=== PATIENT | female | born 1945 | race Caucasian/White ===

== ENCOUNTER → 2017-07-23 | Outpatient (CLI) | payer MEDICARE | LOC: YCFC.O 08:06 | DX: R03.0 Elevated blood-pressure reading, without diagnosis of hypertension (principal); E78.00 Pure hypercholesterolemia, unspecified ==

== ENCOUNTER → 2017-09-09 | Outpatient (CLI) | payer MEDICARE | LOC: YCFC.O 12:00 | PROVIDERS: ATTEND Nurse Practitioner Family | DX: R60.0 Localized edema (principal); R06.02 Shortness of breath; R53.83 Other fatigue; D64.9 Anemia, unspecified ==

== ENCOUNTER → 2017-09-30 | Outpatient (CLI) | payer MEDICARE ==
--- NOTE | 2017-09-30 14:06 | RAD ---
EXAM DESCRIPTION: Chest,2 Views CLINICAL HISTORY: ABNORMAL HEART BEAT COMPARISON: None TECHNIQUE: PA/lateral FINDINGS: There is no acute appearing cardiac or pulmonary abnormality. Heart size is large with prominent central pulmonary arteries. No pleural effusion or pneumothorax. Discoid atelectasis is seen in the left lung base. Otherwise the lungs are clear with no consolidating infiltrate. Lateral view shows intact sternum and T-spine. IMPRESSION: Large heart without congestive failure. Discoid atelectasis in left lung base. Electronically signed by: Tone Boggs MD 09/30/2017 2:04 PM CDT
== END ==
LOC: YCFC.O 12:17
PROVIDERS: ATTEND Nurse Practitioner Family
DX: R00.9 Unspecified abnormalities of heart beat (principal); J98.11 Atelectasis

== ENCOUNTER → 2017-10-23 | Outpatient (CLI) | payer MEDICARE ==
--- NOTE | 2017-10-24 08:14 | MRI ---
EXAM DESCRIPTION: Lumbar Spine w/o Contrast CLINICAL HISTORY: LOW BACK PAIN COMPARISON: X-ray October 17, 2017 TECHNIQUE: Multiplanar, multisequence MRI of the lumbar spine was performed without contrast. FINDINGS: Lumbar vertebral body heights are maintained. The designated L5-S1 disc space is seen on axial image 3 of transaxial T2 series 501. Mild curvature of the upper lumbar spine with convexity towards the right is seen. Conus medullaris terminates at L2 which is low-lying. Visualized intra-abdominal and retroperitoneal structures are unremarkable. L1-2 No significant findings. L2-3 Disc desiccation without significant disc space narrowing. Mild facet hypertrophic and degenerative changes are seen with ligamentum flavum thickening asymmetric on the left. There is mild spinal canal stenosis and mild bilateral foraminal encroachment without nerve root impingement. L3-4 Disc desiccation without significant disc space narrowing. Central disc bulge or protrusion extends 4 to 5 mm AP beyond the endplate margin and measuring 11 mm transverse minimally extending posterior to the L3 inferior endplate and L4 superior endplate. This indents the ventral aspect of the thecal sac. Moderate facet hypertrophic and degenerative changes with moderate ligamentum flavum thickening is seen. There is loss of CSF signal from around the nerve roots in the thecal sac measuring 5 mm AP by 8 mm transverse consistent with severe spinal canal stenosis. There is left greater than right lateral recess encroachment. Moderate right and mild left foraminal encroachment is seen with facet hypertrophy and disc bulging contacting the exiting right L3 nerve root. Small annular tear and right neural foramen is seen. Mild Modic type I degenerative endplate signal changes posteriorly on the right are noted. L4-5 Disc desiccation without disc space narrowing. Moderate facet hypertrophic and degenerative changes with mild ligamentum flavum thickening is seen. There is mild spinal canal stenosis and lateral recess encroachment with minimal bilateral foraminal encroachment. L5-S1 Disc desiccation and mild loss of disc space height with vacuum disc is seen. Mild bilateral facet hypertrophic and degenerative changes with ligamentum flavum thickening is seen. There is mild left lateral recess encroachment on the descending S1 nerve root. Moderate right greater than left foraminal encroachment is seen. IMPRESSION: [id number] disc degenerative changes and facet arthropathy of the lumbar spine is seen. There is multifactorial severe spinal canal stenosis at L3-4. Multilevel foraminal encroachment is seen most significant on the right at L3-4 and right greater than left at L5-S1. Electronically signed by: Nelson Luna MD 10/24/2017 8:13 AM CDT
== END ==
LOC: MRI 14:00
PROVIDERS: ATTEND Nurse Practitioner Family
DX: M54.5 Low back pain (principal); M48.061 Spinal stenosis, lumbar region without neurogenic claudication

== ENCOUNTER 2018-04-03 11:47 | Inpatient (IN) | payer MEDICARE ==
[2018-04-03] MEDS ORDERED: methylPREDNISolone SODIUM SUC 125 MG/2 ML VIAL IV ONE ×2 (12:15→18:11)
--- NOTE | 2018-04-03 12:19 | ED.PDOC ---
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 Timing/Duration: yesterday Cough Quality/Degree: dry cough Possible Cause: chronic episodes, unknown cause Improving Factors: nothing Worsening Factors: nothing Associated Symptoms: other - see hpi Allergies/Adverse Reactions: Allergies Penicillins Allergy (Verified 04/03/18 13:50) NSAIDs Adverse Reaction (Verified 04/03/18 13:50) Home Medications: Ambulatory Orders Buspirone HCl 5 - 10 mg PO PRN PRN 10/17/17 Hydrochlorothiazide 12.5 mg PO PRN PRN 10/17/17 Nebivolol HCl [Bystolic] 10 mg PO DAILY 10/17/17 Rivaroxaban [Xarelto] 20 mg PO DAILY 10/17/17 Tizanidine HCl 4 mg PO PRN PRN 10/17/17 Tramadol HCl [Ultram] 50 mg PO PRN PRN 10/17/17 Trazodone HCl [Trazodone Hydrochloride] 100 mg PO BEDTIME 10/17/17 Lisinopril 10 mg PO DAILY 04/03/18 Mometasone Furoate-Formoterol [Dulera 100-5 Mcg/Act] 1 aer IN DAILY 04/03/18 Review of Systems - Review of Systems Constitutional: States: no symptoms reported EENTM: States: no symptoms reported Respiratory: States: see HPI Cardiology: States: no symptoms reported Gastrointestinal/Abdominal: States: no symptoms reported Genitourinary: States: no symptoms reported Musculoskeletal: States: back pain - chronic Skin: States: no symptoms reported Neurological: States: no symptoms reported All other Systems: Reviewed and Negative Past Medical History (General) - Patient Medical History Hx of COPD: Yes Hx Cardiac Disorders: Yes - A-fib Hx Hypertension: Yes Surgical History: appendectomy, cholecystectomy, other - knee,cataract,colon resection-diverticulitis - Vaccination History Hx Tetanus, Diphtheria Vaccination: Yes Hx Influenza Vaccination: No Hx Pneumococcal Vaccination: Yes - Social History Hx Tobacco Use: No Hx Alcohol Use: Yes Family Medical History - Family History Mother Family History: Unknown Hx Cardiac Disease: Yes - sister Hx Family Cancer: Yes - dad-kidney cancer Physical Exam - Physical Exam General Appearance: Alert, Comfortable, No apparent distress Eye Exam: bilateral normal ENT Exam: normal ENT inspection, hearing grossly normal, pharynx normal Neck: non-tender, full range of motion, supple, normal inspection, trachea midline Respiratory: chest non-tender, no respiratory distress, decreased breath sounds, wheezing Cardiovascular/Chest: normal peripheral pulses, no gallop, no murmur, irregularly irregular - HR-90 Gastrointestinal/Abdominal: non tender, soft, no organomegaly Extremity: no pedal edema, no calf tenderness Neurologic: alert, oriented x 3 Skin Exam: normal color, warm/dry Progress - Progress Progress: 04/03/18 13:46 Vital Signs - 8 hr 04/03/18 04/03/18 11:47 12:51 Temperature 102.1 F H Pulse Rate 90 Pulse Rate [ 101 H Left Radial] Respiratory 18 20 Rate Blood Pressure 102/77 [Left Arm] O2 Sat by Pulse 93 L 99 Oximetry - Results/Orders Results/Orders: 04/03/18 12:15 URINALYSIS Stat 04/03/18 12:22 SVN/Updraft Therapy .ONCE SVN/Updraft Therapy .PRN 04/03/18 13:22 levoFLOXacin 500MG IV [Levaquin 500MG IV] 500 mg Premix Bag 1 bag IVPB ONCE 04/04/18 09:00 [facility] Daily Laboratory Results - last 24 hr 04/03/18 12:39 WBC 11.1 H RBC 5.09 Hgb 16.3 H Hct 48.6 H MCV 95.4 MCH 32.0 H MCHC 33.6 RDW 14.2 Plt Count 199 MPV 8.4 Absolute Neuts (auto) 10.10 H Absolute Lymphs (auto) 0.40 L Absolute Monos (auto) 0.40 Absolute Eos (auto) 0.00 Absolute Basos (auto) 0.00 Neutrophils % 91.5 H Lymphocytes % 3.7 L Monocytes % 4.0 Eosinophils % 0.4 L Basophils % 0.4 PT 11.2 H INR 1.12 PTT (SP) 27.1 Sodium 137 Potassium 4.1 Chloride 100 L Carbon Dioxide 29 Anion Gap 12.1 BUN 13 Creatinine 0.91 BUN/Creatinine Ratio 14.3 Random Glucose 107 H Serum Osmolality 274.4 L Calcium 9.1 Magnesium 1.6 L Total Bilirubin 1.0 Direct Bilirubin 0.2 Indirect Bilirubin 0.8 AST 24 ALT 26 Alkaline Phosphatase 54 Creatine Kinase 47 CK-MB (CK-2) 1.3 CK-MB (CK-2) % Not Reportable Troponin I < 0.02 B-Natriuretic Peptide 170.0 H Serum Total Protein 6.2 L Albumin 3.8 Flu A positive-;Also patient desaturates 93 % despite 2l/nc ;has history of afib which also makes her condition worse; discuss test result with patient recommending hospital OBS agreed with plan Departure - Departure Clinical Impression: Influenza A with respiratory manifestations, History of atrial fibrillation Time of Disposition: 13:51 Disposition: Admit Patient Condition: Fair Departure Forms: Patient Portal Self Enrollment Referrals: Gabrielle Mohan, LEAD RECOVERER [Primary Care Provider] - 1-2 Weeks Home Medications: Ambulatory Orders Buspirone HCl 5 - 10 mg PO PRN PRN 10/17/17 Hydrochlorothiazide 12.5 mg PO PRN PRN 10/17/17 Nebivolol HCl [Bystolic] 10 mg PO DAILY 10/17/17 Rivaroxaban [Xarelto] 20 mg PO DAILY 10/17/17 Tizanidine HCl 4 mg PO PRN PRN 10/17/17 Tramadol HCl [Ultram] 50 mg PO PRN PRN 10/17/17 Trazodone HCl [Trazodone Hydrochloride] 100 mg PO BEDTIME 10/17/17 Lisinopril 10 mg PO DAILY 04/03/18 Mometasone Furoate-Formoterol [Dulera 100-5 Mcg/Act] 1 aer IN DAILY 04/03/18 Decision To Admit - Decistion To Admit Decision to Admit Reason: Admit from ER Decision to Admit Date: 04/03/18 - D/W Sherry Allen-MAN/Hospitalist for admit Decision to Admit Time: 13:51
[2018-04-03] MEDS ORDERED: IPRATROPIUM/ALBUTEROL 3 ML VIAL NEB ONE (12:22)
--- NOTE | 2018-04-03 12:34 | RAD ---
EXAM DESCRIPTION: Chest,1 View CLINICAL HISTORY: 72 years Female, cough/hx of copd COMPARISON: Previous study September 30, 2017 TECHNIQUE: AP portable chest. FINDINGS: Heart size is large with centrally prominent pulmonary vascularity. Heart appears larger than on previous study. Correlate with echocardiographic findings. Partial volume loss or minimal infiltrate in the medial right lung base. No pulmonary mass or worrisome nodule. No pneumothorax or pleural effusion. Bones are unremarkable. IMPRESSION: Large heart without congestive failure. Minimal infiltrate or partial volume loss in the medial right lung base. Electronically signed by: Tone Boggs MD 04/03/2018 12:32 PM [facility]
[2018-04-03] MEDS ORDERED: levoFLOXacin 500MG IV 500 MG in PREMIX BAG 1 BAG IVPB ONE (13:22)
[2018-04-03] MEDS ORDERED: OSELTAMIVIR 75 MG CAP PO ONE (13:29)
[2018-04-03] MEDS ORDERED: levoFLOXacin 500MG IV 100 ML IVPB ONE (13:42)
[2018-04-03] MEDS ORDERED: ACETAMINOPHEN 325 MG TAB PO ONE (13:52)
--- NOTE | 2018-04-03 14:07 | HP ---
SUPERVISING PHYSICIAN: Herb Estes MD CHIEF COMPLAINT: Chills and shortness of breath. HISTORY OF PRESENT ILLNESS: This is a 72 year-old female patient who has been feeling poorly for several days. She has a history of chronic obstructive pulmonary disease as well as atrial fibrillation. Today, her chest has been so bad that she came to the Emergency Room. In the Emergency Room her temperature was 102.1 with a heart rate in the low 100s. Her blood pressure was 102/77, respiratory rate 20, 02 saturation was 93% on 2 liters nasal cannula. When her oxygen was discontinued, she dropped to the mid 80s. Lab was done and she was positive for influenza A. Her WBCs were 11,100 with a hemoglobin of 16.3 and hematocrit of 48.6. She had a left shift on her differential. Sodium 137, potassium 4.1, chloride 100, carbon dioxide 29, BUN13, creatinine 0.91, magnesium 1.6. BNP 170. Urinalysis was within normal limits. Chest x-ray with minimal infiltrate or partial volume loss to the medial right lung base. She was given some fluids, magnesium replacement as well as Tamiflu. Multiple breathing treatments were administered and I was called for admission to the hospital. PAST MEDICAL HISTORY: 1. Atrial fibrillation. 2. Chronic obstructive pulmonary disease. 3. Hypertension. 4. Diverticulitis. PAST SURGICAL HISTORY: 1. Appendectomy. 2. Cholecystectomy. 3. Right TKA. 4. Cataract surgery. 5. Colon resection. CURRENT MEDICATIONS: Per the EMR and awaiting verification. ALLERGIES: NSAIDS and Penicillins. SOCIAL HISTORY: She lives alone, she lives in [place]. She denies any tobacco or illicit drug use. She does drink 3 to 4 glasses of wine weekly. REVIEW OF SYSTEMS: GENERAL: Positive for fever, fatigue, negative for weight changes. HEENT: Negative for sinus symptoms, ear pain, vision changes or sore throat. RESPIRATORY: As per history of present illness including coughing, wheezing, shortness of breath. CARDIAC: Negative for chest pain, palpitations, tachycardia. GI: Negative for nausea, vomiting or diarrhea. GENITOURINARY: Negative for hematuria, dysuria, polyuria. MUSCULOSKELETAL: Chronic for chronic back pain, myalgias, negative for arthralgias. SKIN: Negative for lesions or rashes. NEURO: Negative for headaches, dizziness or seizures. PHYSICAL EXAMINATION: VITAL SIGNS: Temperature 98.2, heart rate 116, respiratory rate 24, 02 saturation 94%. GENERAL: This is a 72 year-old female patient sitting on the side of her hospital bed. She is in moderate respiratory distress. HEENT: Normocephalic and atraumatic. Pupils are equal and reactive. Oropharynx is clear. NECK: Supple without mass. CHEST: Expiratory wheezes throughout, diminished at the bases. She is tachypneic. She is speaking 2 to 3 phrases due to her dyspnea. Chest has equal rise and fall with inspiration and expiration. CARDIOVASCULAR: Regular rate and rhythm. ABDOMEN: Soft, nondistended, non-tender. Bowel sounds are positive. EXTREMITIES: No cyanosis, clubbing, or edema. NEUROLOGIC: She is awake, alert, and oriented x3. LABS AND FILMS: As per history of present illness. ASSESSMENT: 1. Sepsis related to right lower lobe pneumonia with admitting temperature of 102.1 and heart rate of 115. 2. Influenza A. 3. Dehydration secondary to #1 and #2. 4. Chronic obstructive pulmonary disease with an exacerbation. 5. History of atrial fibrillation presently on Xarelto, a beta romain and bruce inhibitor. 6. Hypertension. PLAN: We will admit the patient to the hospital. I have initiated the pneumonia guidelines including the nebulizer breathing treatments plus aggressive pulmonary hygiene. I have started her on Rocephin and azithromycin. She received an initial dose of IV steroids and I will start a taper on steroids later tonight. She will be on the rn cardiac cath due to her atrial fibrillation. I have restarted her home medications. I have also given her Mucinex and she may benefit from pulmonary rehabilitation on discharge. She did not pass her sleep study, she would also benefit from that new test. Estimate stay 2 to 3 days. Will continue to monitor her closely and follow as needed. #[id number] [facility]
[2018-04-03] MEDS ORDERED: ALBUTEROL SULFATE 2.5 MG/3 ML VIAL NEB PRN (16:22)
[2018-04-03] MEDS ORDERED: ONDANSETRON INJ 4 MG/2 ML VIAL IV PRN (16:22)
[2018-04-03] MEDS ORDERED: SODIUM CHLORIDE 0.9% (FLUSH) 10 ML SYG IV PRN (16:22)
[2018-04-03] MEDS ORDERED: tiZANidine 4 MG TAB PO PRN (16:32)
[2018-04-03] MEDS ORDERED: traMADol HCL 50 MG TAB PO PRN (16:32)
[2018-04-03] MEDS ORDERED: busPIRone HCL 5 MG TAB PO PRN (16:32)
[2018-04-03] MEDS ORDERED: SODIUM CHL 0.9% 50ML MIN-BAG+ 50 ML IVPB ONE (18:10)
[2018-04-03] MEDS ORDERED: cefTRIAXone SODIUM 1 GM VIAL ONE (18:10)
[2018-04-03] MEDS: SODIUM CHLORIDE 0.45% 1000ML 1,000 ML IVS PRN (18:15)
[2018-04-03] MEDS: IV SET AND CAP CHANGE INJ INJ SCH (18:16)
[2018-04-03] MEDS: cefTRIAXone SODIUM 1 GM in SODIUM CHL 0.9% 50ML MIN-BAG+ 50 ML IVPB SCH (18:16)
[2018-04-03] MEDS ORDERED: AZITHROMYCIN IV 500 MG VIAL IVPB ONE (19:02)
[2018-04-03] MEDS ORDERED: SODIUM CHLORIDE 0.9% 250ML 250 ML ONE (19:02)
[2018-04-03] MEDS: AZITHROMYCIN IV 500 MG in SODIUM CHLORIDE 0.9% 250ML 250 ML IVPB SCH (19:09)
[2018-04-03] MEDS ORDERED: PANTOPRAZOLE SODIUM IV 40 MG VIAL ONE (20:23)
[2018-04-03] MEDS: IPRATROPIUM/ALBUTEROL 3 ML VIAL INH SCH (20:45)
[2018-04-03] MEDS: guaiFENesin ER TAB 600 MG TAB PO SCH (21:00)
[2018-04-03] MEDS: traZODone HCL 100 MG TAB PO SCH (21:00)
[2018-04-03] MEDS: SODIUM CHLORIDE 0.9% (FLUSH) 10 ML SYG IV SCH (21:02)
[2018-04-03] MEDS: methylPREDNISolone SODIUM SUC 125 MG/2 ML VIAL IV SCH (23:40)
[2018-04-04] MEDS: SODIUM CHLORIDE 0.45% 1000ML 1,000 ML IVS PRN ×3 (00:49→16:46)
[2018-04-04] MEDS: methylPREDNISolone SODIUM SUC 125 MG/2 ML VIAL IV SCH ×4 (05:53→23:31)
[2018-04-04] MEDS: PANTOPRAZOLE SODIUM IV 40 MG VIAL IV SCH (06:12)
[2018-04-04] MEDS ORDERED: OSELTAMIVIR 75 MG CAP ONE (07:45)
[2018-04-04] MEDS ORDERED: guaiFENesin 100 MG/5 ML 10 ML UD ONE (07:46)
[2018-04-04] MEDS: IPRATROPIUM/ALBUTEROL 3 ML VIAL INH SCH ×2 (07:58→12:26)
--- NOTE | 2018-04-04 08:37 | RAD ---
EXAM DESCRIPTION: Chest,2 Views CLINICAL HISTORY: Pneumonia COMPARISON: 04/03/2018 FINDINGS: Two views of the chest are submitted. There is improved aeration at the lung bases. There is mild central pulmonary vascular engorgement. Cardiac silhouette appears normal. No focal parenchymal or pleural disease. No acute bony abnormality. There is no significant pulmonary vascular engorgement. IMPRESSION: Improving aeration and decreased pulmonary vascular engorgement. Electronically signed by: Dayton Jauregui 04/04/2018 8:35 AM [facility]
[2018-04-04] MEDS: NEBIVOLOL 2.5 MG TAB PO SCH (08:38)
[2018-04-04] MEDS: guaiFENesin ER TAB 600 MG TAB PO SCH ×2 (08:39→21:10)
[2018-04-04] MEDS: OSELTAMIVIR 75 MG CAP PO SCH ×2 (08:39→21:11)
[2018-04-04] MEDS: LISINOPRIL 10 MG TAB PO SCH (08:40)
[2018-04-04] MEDS: SODIUM CHLORIDE 0.9% (FLUSH) 10 ML SYG IV SCH ×2 (10:01→21:11)
[2018-04-04] MEDS: RIVAROXABAN 10 MG TAB PO SCH (11:34)
[2018-04-04] MEDS ORDERED: SODIUM CHL 0.9% 50ML MIN-BAG+ 50 ML IVPB ONE (15:46)
[2018-04-04] MEDS ORDERED: cefTRIAXone SODIUM 1 GM VIAL ONE (15:47)
[2018-04-04] MEDS: cefTRIAXone SODIUM 1 GM in SODIUM CHL 0.9% 50ML MIN-BAG+ 50 ML IVPB SCH (15:55)
[2018-04-04] MEDS ORDERED: SODIUM CHLORIDE 0.9% 250ML 250 ML ONE (18:10)
[2018-04-04] MEDS ORDERED: AZITHROMYCIN IV 500 MG VIAL IVPB ONE (18:11)
[2018-04-04] MEDS: AZITHROMYCIN IV 500 MG in SODIUM CHLORIDE 0.9% 250ML 250 ML IVPB SCH (18:26)
[2018-04-04] MEDS: LEVALBUTEROL NEBS 1.25 MG/3 ML VIAL NEB SCH (18:47)
[2018-04-04] MEDS: BUDESONIDE NEBS 0.5 MG/2 ML VIAL NEB SCH (20:44)
[2018-04-04] MEDS: traZODone HCL 100 MG TAB PO SCH (21:10)
--- NOTE | 2018-04-04 21:36 | PN ---
DATE: 04/04/18 SUPERVISING PHYSICIAN: Roland Islas M.D. SUBJECTIVE: The patient feels a little bit better today, she says, but she continues to be awfully short of breath even at rest. She has been afebrile since admission with T max temperature since admission with T max temperature since admission at 98.3. She has had some increase in heart rate with a history of atrial fibrillation which shows to be atrial fibrillation on the monitor, but denies any palpitations, chest pains or worsening shortness of breath. OBJECTIVE: VITAL SIGNS: Temperature 98.3, pulse 114, blood pressure 130/82, respirations 18, satting 97% on nasal cannula at 2 liters at rest. I's and O's show a positive balance of 980 with 1780 in, 800 out. Weight is 107.1 kg. CHEST: Lung sounds continue to be diminished throughout with expiratory wheezing. No rales or rhonchi. HEART: Regular rate and rhythm with the monitor showing anywhere from low 90s up to 115 or 120. ABDOMEN: Soft, non-tender. Positive bowel sounds. EXTREMITIES: Without any clubbing, cyanosis or edema. NEUROLOGIC: She is alert and oriented times three. LABORATORY: White count 6,800, hemoglobin 15.3, hematocrit 46.6, platelet count 192,000. Differential does show a left shift. Chemistry shows normal electrolytes with potassium 4.3, BUN 14, creatinine 0.83, calcium 8.8, bilirubin and other liver functions showing to be within normal limits. Urinalysis was showing to be within normal limits. MICROBIOLOGY: Blood cultures remain negative at 24 hours. RADIOLOGY: Repeat chest x-ray shows improving aeration, decrease pulmonary vascular engorgement on 2 view chest film ASSESSMENT: 1. Sepsis secondary to right lower lobe pneumonia. 2. Acute exacerbation of chronic obstructive pulmonary disease secondary to Influenza A with concerns for developing community acquired right lower lobe pneumonia. 3. Chronic atrial fibrillation on Xarelto and low dose beta romain for rate control with continued rate control requiring continued close monitoring. 4. Hypertension. PLAN: Will continue with treatment of the patient with antivirals of Tamiflu and antibiotics of azithromycin and Rocephin. Given that she is continuing to be very tight and having obvious wheezing, will continue with IV steroids and continue to slowly taper those off as she tolerates. Will continue to monitor her cardiac cueva in regards to atrial fibrillation. Should she show some increase in heart rate, certainly will need to consider utilizing additional beta blockers or possible Cardizem for rate control. 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 Mcmanus and certainly if she is still here Friday it would be good to try to get a consultation in regards to that if required. I will anticipate at least another 1 to 2 days of hospitalization as the patient is showing slow clinical improvement. Once she can transition to outpatient management will continue to monitor and treat appropriately. #[id number] [facility]
[2018-04-05] MEDS: LEVALBUTEROL NEBS 1.25 MG/3 ML VIAL NEB SCH ×3 (00:55→16:33)
[2018-04-05] MEDS: SODIUM CHLORIDE 0.45% 1000ML 1,000 ML IVS PRN (05:16)
[2018-04-05] MEDS: methylPREDNISolone SODIUM SUC 125 MG/2 ML VIAL IV SCH ×3 (05:34→18:18)
[2018-04-05] MEDS: PANTOPRAZOLE SODIUM IV 40 MG VIAL IV SCH (06:15)
[2018-04-05] MEDS ORDERED: BUDESONIDE NEBS 0.5 MG/2 ML VIAL NEB ONE (07:49)
[2018-04-05] MEDS ORDERED: LEVALBUTEROL NEBS 1.25 MG/3 ML VIAL NEB ONE (07:49)
[2018-04-05] MEDS: BUDESONIDE NEBS 0.5 MG/2 ML VIAL NEB SCH ×2 (08:31→20:49)
[2018-04-05] MEDS ORDERED: ALPRAZolam 0.5 MG TAB PO PRN (09:20)
--- NOTE | 2018-04-05 09:31 | RAD ---
EXAM DESCRIPTION: Chest,2 Views CLINICAL HISTORY: 72 years Female RLL pneumonia COMPARISON: Two-view chest dated 04/04/2018 TECHNIQUE: PA and lateral views of the chest are obtained. FINDINGS: Heart: The heart is upper limits of normal in size and configuration. Vasculature: There is mild tortuosity and atherosclerosis of the aorta. The pulmonary vascularity is normal. Mediastinum: Unremarkable otherwise. No evidence of mass or adenopathy. Lungs: There is no focal consolidation in the lungs. A 0.9 cm opacity projects along the right upper lung laterally and appears isodense to adjacent ribs, possibly a calcified granuloma. It was present on a more remote study dated 09/30/2017. There is minimal discoid atelectasis or scarring in the left base. Pleural spaces: There are no pleural effusions. There are no pneumothoraces. Osseous structures: There is no evidence of acute fracture, osseous destruction or osteoblastic lesions. There are diffuse enthesopathic changes including a rolling pattern of ossification in the thoracic spine consistent with diffuse idiopathic skeletal hyperostosis (DISH). Tubes and catheters: None. Upper abdomen: No acute findings. IMPRESSION: No acute cardiopulmonary abnormality. Suspect calcified granuloma in the right upper lung laterally, stable since 09/30/2017. Comparison to more remote previous chest x-rays may be helpful for confirmation. Remainder of findings as described above. Electronically signed by: Amarilys Oliver MD 04/05/2018 9:29 AM HOUSEHOLD APPLIANCES SERVICE TECHNICIAN
[2018-04-05] MEDS ORDERED: diltiaZEM DRIP 125 MG in SODIUM CHLORIDE 0.9% 100ML 100 ML IVPB SCH (10:00)
[2018-04-05] MEDS ORDERED: SODIUM CHLORIDE 0.9% 100ML 100 ML IVPB ONE (10:14)
[2018-04-05] MEDS ORDERED: diltiaZEM DRIP 125 MG/25 ML VIAL IVPB ONE (10:15)
[2018-04-05] MEDS: guaiFENesin ER TAB 600 MG TAB PO SCH ×2 (11:08→20:32)
[2018-04-05] MEDS: SODIUM CHLORIDE 0.9% (FLUSH) 10 ML SYG IV SCH ×2 (11:09→20:33)
[2018-04-05] MEDS: NEBIVOLOL 2.5 MG TAB PO SCH (11:14)
[2018-04-05] MEDS: OSELTAMIVIR 75 MG CAP PO SCH ×2 (11:15→21:46)
[2018-04-05] MEDS: LISINOPRIL 10 MG TAB PO SCH (11:17)
[2018-04-05] MEDS: RIVAROXABAN 10 MG TAB PO SCH (13:09)
[2018-04-05] MEDS ORDERED: SODIUM CHL 0.9% 50ML MIN-BAG+ 50 ML IVPB ONE (17:19)
[2018-04-05] MEDS ORDERED: cefTRIAXone SODIUM 1 GM VIAL ONE (17:20)
[2018-04-05] MEDS: cefTRIAXone SODIUM 1 GM in SODIUM CHL 0.9% 50ML MIN-BAG+ 50 ML IVPB SCH (17:35)
[2018-04-05] MEDS ORDERED: diltiaZEM HCL TAB 30 MG TAB PO SCH (18:00)
[2018-04-05] MEDS ORDERED: diltiaZEM HCL TAB 30 MG TAB ONE ×2 (18:08)
[2018-04-05] MEDS ORDERED: SODIUM CHLORIDE 0.9% 250ML 250 ML ONE (18:55)
[2018-04-05] MEDS ORDERED: AZITHROMYCIN IV 500 MG VIAL IVPB ONE (18:56)
[2018-04-05] MEDS: AZITHROMYCIN IV 500 MG in SODIUM CHLORIDE 0.9% 250ML 250 ML IVPB SCH (19:03)
[2018-04-05] MEDS: traZODone HCL 100 MG TAB PO SCH (20:32)
--- NOTE | 2018-04-05 21:41 | PN ---
DATE: 04/05/18 SUPERVISING PHYSICIAN: Roland Islas M.D. SUBJECTIVE: The patient this morning went into atrial fibrillation with RVR. She was running rates in the 150s and 160s. She was having some shortness of breath and chest pressure associated with it, but was maintaining a blood pressure. She responded to initial treatment with a bolus of Cardizem 50 mg and then was started on a drip, and was feeling much better once her rate had been better controlled. She has been afebrile. The patient, when she went to x-ray and returned, is when she was actually noted to be in RVR. OBJECTIVE: VITAL SIGNS: Heart rate 160, blood pressure 118/81, respirations 16, satting 95%. After a bolus of Cardizem rate was 116. Blood pressure 138/83, satting 95% on 2 liters nasal cannula. CHEST: Lung sounds, no obvious wheezing was noted today. HEART: Regular rate and rhythm with rapid ventricular response noted on the monitor in the 160s. It responded to Cardizem in the 115s to 120s. ABDOMEN: Soft, non-tender. Positive bowel sounds. EXTREMITIES: Without any cyanosis or edema. NEUROLOGIC: She is alert and oriented times three. LABORATORY: No additional laboratory to report. MICROBIOLOGY: Blood cultures remain negative after 48 hours. RADIOLOGY: Chest x-ray per radiology interpretation of two view chest showed no acute cardiopulmonary abnormalities suspected. The calcified granuloma in the right upper lobe is stable since 09/30/17. ASSESSMENT: 1. Sepsis secondary to right lower lobe pneumonia improving with antibiotic coverage. 2. Acute exacerbation of chronic obstructive pulmonary disease secondary to Influenza A and #1 with community acquired right lower lobe pneumonia improving with antivirals and antibiotics. 3. 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 Continue treatment and monitoring. 4. Hypertension, stable. PLAN: Will continue current plan of care for pneumonia with antivirals, Tamiflu and antibiotics, including azithromycin and Rocephin. Right now she is on a Cardizem drip. Will continue that and then work to transition her to a p.o. dose as she shows better rate control. Her heart doctor is Dr. Mcmanus and will probably need to touch base with him tomorrow to followup and see if he has any suggestions on further treatment. Until she can transition to oral Cardizem and outpatient management will continue to monitor and treat as needed. [facility][id number] [facility]
[2018-04-06] MEDS: methylPREDNISolone SODIUM SUC 125 MG/2 ML VIAL IV SCH ×4 (01:33→19:46)
[2018-04-06] MEDS: LEVALBUTEROL NEBS 1.25 MG/3 ML VIAL NEB PRN ×2 (02:10→21:05)
[2018-04-06] MEDS: diltiaZEM HCL TAB 30 MG TAB PO SCH ×4 (02:46→18:11)
[2018-04-06] MEDS: PANTOPRAZOLE SODIUM IV 40 MG VIAL IV SCH (06:28)
[2018-04-06] MEDS: NEBIVOLOL 2.5 MG TAB PO SCH (08:45)
[2018-04-06] MEDS: guaiFENesin ER TAB 600 MG TAB PO SCH ×2 (08:46→21:12)
[2018-04-06] MEDS: LISINOPRIL 10 MG TAB PO SCH (08:46)
[2018-04-06] MEDS: SODIUM CHLORIDE 0.9% (FLUSH) 10 ML SYG IV SCH ×2 (08:46→21:12)
[2018-04-06] MEDS: OSELTAMIVIR 75 MG CAP PO SCH ×3 (08:47→21:12)
[2018-04-06] MEDS: BUDESONIDE NEBS 0.5 MG/2 ML VIAL NEB SCH ×2 (09:51→21:05)
[2018-04-06] MEDS: LEVALBUTEROL NEBS 1.25 MG/3 ML VIAL NEB SCH ×3 (09:51→16:17)
[2018-04-06] MEDS: RIVAROXABAN 10 MG TAB PO SCH (12:06)
[2018-04-06] MEDS ORDERED: SODIUM CHLORIDE 0.9% (FLUSH) 10 ML SYG IV ONE (14:17)
[2018-04-06] MEDS ORDERED: methylPREDNISolone SODIUM SUC 125 MG/2 ML VIAL IV ONE (14:32)
[2018-04-06] MEDS ORDERED: hydroCHLOROthiazide 25 MG TAB PO ONE (14:33)
--- NOTE | 2018-04-06 15:36 | RAD ---
EXAM DESCRIPTION: Chest,1 View CLINICAL HISTORY: 72 years Female, COPD exacerbation .. FLu A COMPARISON: Radiographs of the chest dated 04/05/2018. TECHNIQUE: AP radiograph of the chest was obtained. FINDINGS: Trachea is midline. The cardiac silhouette is enlarged in size. The pulmonary vasculature is within normal limits.The lungs are clear with no acute consolidation.No evidence of pleural effusions. IMPRESSION: Mildly prominent cardiac silhouette. No acute process. Electronically signed by: Haley Gao MD 04/06/2018 3:34 PM [facility]
[2018-04-06] MEDS ORDERED: FUROSEMIDE INJ 40 MG/4 ML VIAL IV ONE (16:00)
[2018-04-06] MEDS ORDERED: cefTRIAXone SODIUM 1 GM VIAL ONE (16:27)
[2018-04-06] MEDS ORDERED: SODIUM CHL 0.9% 50ML MIN-BAG+ 50 ML IVPB ONE (16:27)
[2018-04-06] MEDS: cefTRIAXone SODIUM 1 GM in SODIUM CHL 0.9% 50ML MIN-BAG+ 50 ML IVPB SCH (16:46)
[2018-04-06] MEDS ORDERED: AZITHROMYCIN IV 500 MG VIAL IVPB ONE (16:56)
[2018-04-06] MEDS ORDERED: SODIUM CHLORIDE 0.9% 250ML 250 ML ONE (16:56)
[2018-04-06] MEDS: AZITHROMYCIN IV 500 MG in SODIUM CHLORIDE 0.9% 250ML 250 ML IVPB SCH (18:11)
--- NOTE | 2018-04-06 19:40 | PN ---
DATE: 04/06/18 SUPERVISING PHYSICIAN: Marquise Mack M.D. SUBJECTIVE: The patient has had good control of her ventricular rate since starting on Cardizem 60 mg every 6 hours. However, she still is showing some dyspneic events and is pursed lip breathing, and is not improving at the rate that would be expected with the aggressive treatment and management at this point. I did discuss with her that we are going to try some BiPAP and Lasix to assess maybe a little better fluid management along with increasing her steroids slightly to see if this will improve her lung function. She does remain afebrile. She has had no chest pains or palpitations and continues to have good control of her ventricular rate. OBJECTIVE: LABORATORY: White count shows to be at 16,500, hemoglobin 14.8, hematocrit 45.0, platelet count 198,000. Differential does show a left shift. Chemistries show normal electrolytes with carbon dioxide at 22. She does have a BNP that is slightly elevated since admission and has gone up to 269. MICROBIOLOGY: Blood cultures remain negative after 3 days. RADIOLOGY: Repeat chest x-ray today shows mildly prominent cardiac silhouette but no acute consolidations or evidence of pleural effusions. ASSESSMENT: 1. Sepsis secondary to right lower lobe pneumonia showing slow improvement despite aggressive antibiotic coverage and aggressive pulmonary hygiene. 2. Acute exacerbation of chronic obstructive pulmonary disease due to influenza A and #1 with concerns for continued community acquired pneumonia but showing improvement, although not as clinically expected with continued aggressive management with high dose steroids, antivirals and antibiotics. 3. Acute on chronic atrial fibrillation with initial rapid ventricular response now showing good control of her ventricular rate on Cardizem 60 mg p.o. every 6 hours. The patient is on snf Xarelto. Will continue to monitor and transition the patient to dosing based off response. 4. Hypertension, stable. 5. Elevated BNP with no mention of any congestive heart failure, although could be acutely contributing to some of her dyspneic state. PLAN: Will continue with treatment of the pneumonia and flu with antivirals and antibiotics, both including azithromycin and Rocephin. She is now on Cardizem 60 mg every 6 hours and is showing good response. I plan to transition her to 240 mg controlled release in the morning. Will need to touch base with Dr. Mcmanus after tomorrow in regards to additional treatment. I will try some Lasix tonight and given that she is quite dyspneic and will be on BiPAP as well, will go ahead and place a catheter to closely monitor her output. Will anticipate that the catheter will come out in the morning. I have also stepped her steroids up and gave her a dose of 125 mg and will increase to 80 every 6 hours for 3 doses, and reevaluate in the morning. I am hoping that this will improve her symptoms and if not will certainly need to touch base with pulmonology at [facility] for possible further treatment at higher level of care as the patient again is high risk for complications and is showing slow improvement compared to aggressive management. Until then will continue to monitor and treat as needed. [facility][id number] [facility]
[2018-04-06] MEDS: IV SET AND CAP CHANGE INJ INJ SCH (20:00)
[2018-04-06] MEDS: traZODone HCL 100 MG TAB PO SCH (21:11)
[2018-04-07] MEDS: LEVALBUTEROL NEBS 1.25 MG/3 ML VIAL NEB SCH ×4 (01:45→23:38)
[2018-04-07] MEDS: methylPREDNISolone SODIUM SUC 125 MG/2 ML VIAL IV SCH ×2 (01:56→08:25)
[2018-04-07] MEDS: PANTOPRAZOLE SODIUM IV 40 MG VIAL IV SCH (06:03)
--- NOTE | 2018-04-07 07:58 | RAD ---
EXAM: Chest,2 Views CLINICAL HISTORY: pneumonia COMPARISON STUDY: April 06, 2018 TECHNICAL: PA and lateral chest x-ray FINDINGS: There is a new, mild pulmonary opacity in the right lower lobe without consolidation. There is no interstitial edema or effusion. Heart is enlarged. Vascular calcifications are present in aorta. IMPRESSION: Mild, new right lower lobe infiltrate. Electronically signed by: Neil Ying MD 04/07/2018 7:56 AM [employer]
[2018-04-07] MEDS: BUDESONIDE NEBS 0.5 MG/2 ML VIAL NEB SCH ×2 (08:30→20:31)
[2018-04-07] MEDS: NEBIVOLOL 2.5 MG TAB PO SCH (08:35)
[2018-04-07] MEDS: LISINOPRIL 10 MG TAB PO SCH (08:35)
[2018-04-07] MEDS: OSELTAMIVIR 75 MG CAP PO SCH ×2 (08:35→20:32)
[2018-04-07] MEDS: guaiFENesin ER TAB 600 MG TAB PO SCH ×2 (08:35→20:31)
[2018-04-07] MEDS: SODIUM CHLORIDE 0.9% (FLUSH) 10 ML SYG IV SCH ×2 (08:36→20:32)
[2018-04-07] MEDS ORDERED: FUROSEMIDE INJ 20 MG/2 ML VIAL IV ONE (10:01)
[2018-04-07] MEDS: RIVAROXABAN 10 MG TAB PO SCH (11:35)
[2018-04-07] MEDS ORDERED: predniSONE 20 MG TAB PO ONE (15:00)
--- NOTE | 2018-04-07 15:04 | PN ---
SUPERVISING PHYSICIAN: Marquise Mack M.D. DATE: 04/07/18 SUBJECTIVE: The patient responded well to Lasix yesterday. She said she feels much better today. She is not quite as dyspneic with exertion. She has had no chest pain, nausea or vomiting. She has been afebrile. OBJECTIVE: VITAL SIGNS: Temperature 98. Pulse 91. Blood pressure 147/79. Respirations 20. Saturation 97% on nasal cannula at rest on 2 liters. I&Os show negative balance of 4800 with 1400 in, 5200 out. Weight 108.4 kg. GENERAL: The patient is resting comfortably and appears to be in no acute distress. She is still doing some pursed lip breathing, but much improved from yesterday. CHEST: Lung sounds are diminished with some faint inspiratory and expiratory wheezing. No obvious rhonchi or rales. HEART: Irregular rate and rhythm with rate on monitor in the 90s. ABDOMEN: Obese, but soft and nontender. Positive bowel sounds. EXTREMITIES: No edema. NEUROLOGIC: Alert and oriented times three. LABORATORY: White count down to 13,600, hemoglobin5 1.6, hematocrit 47.9, platelet count 197,000. Differential shows continued left shift. Chemistries show normal electrolytes with BUN 20, creatinine 0.78, calcium 8.7. MICROBIOLOGY: Blood cultures remain negative after 3 days. RADIOLOGY: Repeat chest x-ray this morning per radiologic interpretation showed mild new right lower lobe infiltrate. ASSESSMENT: 1. Sepsis secondary to right lower lobe pneumonia complicated by influenza A infection, responding to treatment with antibiotics, steroids and aggressive pulmonary hygiene. 2. Acute exacerbation of chronic obstructive pulmonary disease due to influenza A with a right lower lobe pneumonia, requiring continued high-dose steroids and antibiotics. 3. Acute on chronic atrial fibrillation with rapid ventricular response, now back to good rate control after Cardizem drip and transition to p.o. 4. Chronic anticoagulation on Xarelto. 5. Elevated BNP without any mention of any congestive heart failure, probably contributing to some of her dyspneic state, responding well to Lasix. 6. Hypertension, stable. PLAN: Will continue with antibiotics of Rocephin and azithromycin. She has finished a 5-day course of Tamiflu. We will await Dr. Mcmanus to see the patient in consultation today. I have started her on Cardizem 240 mg controlled release daily. We will give her a second dose of Lasix 20 mg IV and then remove the Harris catheter after she has shown good diuresis. We will start her on p.o. Lasix in the morning at 20 mg daily. I have also started tapering her steroids down fairly aggressive in efforts to probably have discharge tomorrow. Until then, we will continue to monitor and treat as needed. #[id number] [facility]
[2018-04-07] MEDS ORDERED: SODIUM CHL 0.9% 50ML MIN-BAG+ 50 ML IVPB ONE (16:35)
[2018-04-07] MEDS ORDERED: cefTRIAXone SODIUM 1 GM VIAL ONE (16:36)
[2018-04-07] MEDS: cefTRIAXone SODIUM 1 GM in SODIUM CHL 0.9% 50ML MIN-BAG+ 50 ML IVPB SCH (16:39)
[2018-04-07] MEDS ORDERED: AZITHROMYCIN IV 500 MG VIAL IVPB ONE (17:33)
[2018-04-07] MEDS ORDERED: SODIUM CHLORIDE 0.9% 250ML 250 ML ONE (17:33)
[2018-04-07] MEDS: AZITHROMYCIN IV 500 MG in SODIUM CHLORIDE 0.9% 250ML 250 ML IVPB SCH (18:24)
[2018-04-07] MEDS: traZODone HCL 100 MG TAB PO SCH (20:31)
[2018-04-08] MEDS: PANTOPRAZOLE SODIUM IV 40 MG VIAL IV SCH (06:34)
[2018-04-08] MEDS: LEVALBUTEROL NEBS 1.25 MG/3 ML VIAL NEB SCH (07:05)
[2018-04-08] MEDS: BUDESONIDE NEBS 0.5 MG/2 ML VIAL NEB SCH (07:05)
[2018-04-08] MEDS ORDERED: POTASSIUM CHLORIDE 10 MEQ TAB PO SCH (07:30)
[2018-04-08] MEDS ORDERED: predniSONE 20 MG TAB PO SCH (09:00)
[2018-04-08] MEDS ORDERED: FUROSEMIDE 40 MG TAB PO SCH (09:00)
[2018-04-08 10:09] VITALS: BP 156/83; TEMP 97.7; O2SAT 94
[2018-04-08] MEDS: guaiFENesin ER TAB 600 MG TAB PO SCH (10:53)
[2018-04-08] MEDS: OSELTAMIVIR 75 MG CAP PO SCH (10:53)
[2018-04-08] MEDS: LISINOPRIL 10 MG TAB PO SCH (10:53)
[2018-04-08] MEDS: NEBIVOLOL 2.5 MG TAB PO SCH (10:54)
[2018-04-08] MEDS: SODIUM CHLORIDE 0.9% (FLUSH) 10 ML SYG IV SCH (10:56)
--- NOTE | 2018-04-16 16:54 | DS ---
SUPERVISING PHYSICIAN: Marquise Mack MD ADMISSION DIAGNOSIS: 1. Sepsis related to right lower lobe pneumonia with admitting temperature of 102.1 and heart rate of 115. 2. Influenza A. 3. Dehydration secondary to #1 and #2. 4. Chronic obstructive pulmonary disease with an exacerbation. 5. History of atrial fibrillation presently on Xarelto, a beta romain and bruce inhibitor. 6. Hypertension. DISCHARGE DIAGNOSIS: 1. Sepsis secondary to right lower lobe pneumonia complicated by influenza A infection, responding to treatment with antibiotics, steroids and aggressive pulmonary hygiene. 2. Acute exacerbation of chronic obstructive pulmonary disease due to influenza A with a right lower lobe pneumonia, requiring continued high-dose steroids and antibiotics. 3. Acute on chronic atrial fibrillation with rapid ventricular response, now back to good rate control after Cardizem drip and transition to p.o. 4. Chronic anticoagulation on Xarelto. 5. Elevated BNP without any mention of any congestive heart failure, probably contributing to some of her dyspneic state, responding well to Lasix. 6. Hypertension, stable. 7. Patient having gone into acute atrial fibrillation with rapid ventricular response requiring Cardizem drip and management and then able to transition to p.o. medication showing to be stable at discharge. REASON FOR HOSPITALIZATION: This is a 72 year-old female patient who has been feeling poorly for several days. She has a history of chronic obstructive pulmonary disease as well as atrial fibrillation. Today, her chest has been so bad that she came to the Emergency Room. In the Emergency Room her temperature was 102.1 with a heart rate in the low 100s. Her blood pressure was 102/77, respiratory rate 20, 02 saturation was 93% on 2 liters nasal cannula. When her oxygen was discontinued, she dropped to the mid 80s. Lab was done and she was positive for influenza A. Her WBCs were 11,100 with a hemoglobin of 16.3 and hematocrit of 48.6. She had a left shift on her differential. Sodium 137, potassium 4.1, chloride 100, carbon dioxide 29, BUN13, creatinine 0.91, magnesium 1.6. BNP 170. Urinalysis was within normal limits. Chest x-ray with minimal infiltrate or partial volume loss to the medial right lung base. She was given some fluids, magnesium replacement as well as Tamiflu. Multiple breathing treatments were administered and she was admitted to the hospital in stable condition. LABORATORY STUDIES: White count11,100 on admission, discharge was 13,600, hemoglobin 15.6 and hematocrit 47.9, platelet count 197,000, differential did show a continued left shift through hospitalization. Coagulation studies showed normal PT/PTT. Electrolytes were showing to be within normal limits on admission. At discharge, BUN 20, creatinine 0.78, calcium 8.7, magnesium initially was low at 1.6, with replacement it normalized at 1.9. Liver functions showed to within normal limits. Troponin less than 0.03. BNP was slightly elevated initially at 170 on admission, discharge was 269. MICROBIOLOGY: Sputum culture final results showed normal mixed respiratory morales. Blood cultures remained negative for 5 days and influenza by PCR was positive for A. RADIOLOGY: Chest x-ray in the Emergency Room prior to admission per radiology interpretation showed enlarged heart without congestive failure. There was note of minimal infiltrate or partial loss volume loss in the medial right lung base. Multiple x-rays were completed, the last one being on 04/07/18 and per radiology interpretation of 2-view chest showed a new right middle lobe lower infiltrate. HOSPITAL COURSE: Ms. Smith was admitted on 04/04/18 with shortness of breath and chills secondary to influenza A with a right lower lobe pneumonia. She was started on treatment with Tamiflu, antibiotics that included Levaquin and Rocephin and she also was given Duoneb treatments as well as Solu-Medrol. She was then transitioned to azithromycin and Rocephin and progressed well clinically and was tapered to oral prednisone. She ended up going into atrial fibrillation and was started on a drip and was able to titrate off the drip and started on Cardizem 60 me every 6 hours and then transitioned to 240 mg daily. She was showing good response to treatment. Her EKGS did show atrial fibrillation with a rapid ventricular response at 142 and after treatment was showing stable vital signs. Final vital signs on discharge showing a heart rate of 97, blood pressure 156/83, saturation 94% on room air. She was afebrile at 97.7. She was febrile on admission at 102.1. She had progressed well in her treatment course and was felt to be stable enough to transition to outpatient management. PLAN: The patient was discharged on 04/08/18 with instructions to followup with Gali, Nurse Practitioner, in a few weeks as well as to followup with Dr. Santos Mcmanus once discharged. She was to increase her activities as tolerated and resume home medications as instructed and take new medication as directed. She was to resume her usual diet. At discharge, new prescriptions included: 1. Cardizem 240 mg daily. 2. Lasix 20 mg daily, #30. 3. Mucinex 600 mg daily. 4. Xopenex 1.25 mg every 4 hours as needed, #30. 5. Xopenex 1.25 mg every 8 hours scheduled, #30. 6. Xyzal allergy pills, 5 mg at bedtime. 7. Protonix 20 mg daily, #30. 8. Potassium chloride 10 mEq daily, #30. 9. Prednisone tapering dose, 12-day taper as directed. Disposition: Patient discharge to home. . Condition on discharge was stable and improved. [facility][id number] [facility]
== END 2018-04-08 12:00 | disposition home or self-care (01) | DRG 871 ==
LOC: ER 11:47 → MS 14:06
PROVIDERS: ADMIT Nurse Practitioner Acute Care; ATTEND Nurse Practitioner Family
DX: A41.89 Other specified sepsis (principal); J10.00 Influenza due to other identified influenza virus with unspecified type of pneumonia; J44.1 Chronic obstructive pulmonary disease with (acute) exacerbation; E86.0 Dehydration; I10 Essential (primary) hypertension; I48.2 Chronic atrial fibrillation; G89.29 Other chronic pain; M54.9 Dorsalgia, unspecified; M79.10 Myalgia, unspecified site; Z79.02 Long term (current) use of antithrombotics/antiplatelets; Z90.49 Acquired absence of other specified parts of digestive tract; Z96.651 Presence of right artificial knee joint; Z88.0 Allergy status to penicillin; Z88.6 Allergy status to analgesic agent

== ENCOUNTER → 2018-05-05 | Outpatient (CLI) | payer MEDICARE ==
--- NOTE | 2018-05-05 11:44 | MRI ---
Study: MRI of the Left Knee. Indication: RUPTURED TENDON LEFT KNEE Technique: Multiplanar, multi sequence MRI of the left knee was obtained without intravenous contrast. Metal artifact reduction techniques utilized. Comparison: None. Findings: Post surgical changes of total knee arthroplasty and patellar resurfacing noted with pronounced susceptibility artifact. No periprosthetic fracture or osteolysis identified. Trace lateral patellar subluxation suspected. Tiny effusion. The degree of artifact does make evaluation of the quadriceps tendon difficult. It does appear attenuated over its distal 2.5 cm with reduction in caliber by approximately 25%. No full-thickness tear or tendon retraction identified. Slight patella baja noted. The patellar tendon is slightly thickened throughout and is shortened. 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 No gross periprosthetic fracture or osteolysis. Low-grade attenuation distal quadriceps tendon but without fluid-filled tear identified. Thickened and shortened patellar tendon with mild patella baja. Tiny effusion. Electronically signed by: Quentin Anderson MD 05/05/2018 11:41 AM [facility]
== END ==
LOC: MRI 10:00
PROVIDERS: ATTEND Orthopaedic Surgery
DX: S86.912A Strain of unspecified muscle(s) and tendon(s) at lower leg level, left leg, initial encounter (principal); Z96.652 Presence of left artificial knee joint

== ENCOUNTER 2018-05-26 08:22 | Inpatient (IN) | payer MEDICARE ==
[2018-05-26] MEDS ORDERED: IPRATROPIUM/ALBUTEROL 3 ML VIAL NEB ONE ×2 (08:37→08:58)
[2018-05-26] MEDS ORDERED: methylPREDNISolone SODIUM SUC 125 MG/2 ML VIAL IV ONE (08:41)
[2018-05-26] MEDS ORDERED: ONDANSETRON INJ 4 MG/2 ML VIAL IV ONE (08:44)
--- NOTE | 2018-05-26 08:47 | ED.PDOC ---
History of Present Illness - General Chief Complaint: Respiratory Problem Stated Complaint: shortness of breath Time Seen by Provider: 05/26/18 08:40 Source: patient - History of Present Illness Initial Comments: SHORTNESS OF BREATH, ONSET PAST PM. SHE HAS COPD AND ATRIAL FIBRILLATION. HAS BEEN USING HER NEBULIZER AT HOME. ON ARRIVAL SHE IS TACHYCARDIC AND VOMITING. Timing/Duration: 24 hours Severity: moderate Possible Cause: occasional episodes Worsening Factors: nothing Associated Symptoms: other - VOMITING Respiratory Risk Factors: other - HX OF COPD Allergies/Adverse Reactions: Allergies Penicillins Allergy (Verified 04/03/18 13:50) NSAIDs Adverse Reaction (Verified 04/03/18 13:50) Home Medications: Ambulatory Orders Rivaroxaban [Xarelto] 20 mg PO DAILY 10/17/17 Tramadol HCl [Ultram] 50 mg PO PRN PRN 10/17/17 Trazodone HCl [Trazodone Hydrochloride] 100 mg PO BEDTIME 10/17/17 Lisinopril 10 mg PO DAILY 04/03/18 Mometasone Furoate-Formoterol [Dulera 100-5 Mcg/Act] 1 aer IN DAILY 04/03/18 Furosemide [Lasix] 20 mg PO DAILY #30 tab 04/08/18 Levocetirizine Dihydrochloride [Xyzal Allergy 24Hr] 5 mg PO BEDTIME #30 tab 04/08/18 Pantoprazole Sodium [Protonix] 20 mg PO DAILY #30 tab 04/08/18 Potassium Chloride Tab [Micro-K] 10 meq PO DAILYBK #30 tab 04/08/18 guaiFENesin ER TAB [Mucinex Tab] 1,200 mg PO BID tab 04/08/18 Diltiazem HCl Coated Beads [Cartia Xt] 180 mg PO DAILY 05/26/18 Metoprolol Tartrate 50 mg PO BID 05/26/18 Review of Systems - Review of Systems Constitutional: States: fever, malaise EENTM: States: no symptoms reported Respiratory: States: no symptoms reported, cough, short of breath Cardiology: States: palpitations Gastrointestinal/Abdominal: States: nausea, vomiting Musculoskeletal: States: no symptoms reported Skin: States: no symptoms reported Neurological: States: no symptoms reported Endocrine: States: no symptoms reported Hematologic/Lymphatic: States: no symptoms reported Past Medical History (General) - Patient Medical History Hx Stroke: No Hx of COPD: Yes Hx Cardiac Disorders: Yes - Atrial fib Hx Congestive Heart Failure: No Hx Hypertension: Yes Hx Diabetes: No Surgical History: appendectomy, cholecystectomy - Vaccination History Hx Tetanus, Diphtheria Vaccination: Yes Hx Influenza Vaccination: Yes Hx Pneumococcal Vaccination: - unknown - Social History Hx Tobacco Use: Yes Hx Alcohol Use: Yes Family Medical History - Family History Mother Family History: Unknown Hx Cardiac Disease: Yes - sister Hx Family Cancer: Yes - dad-kidney cancer Physical Exam - Physical Exam General Appearance: Alert, Well Developed, Well Nourished, Other - IN MODDERATE DISTRESS. OXYGEN SATURATION AT ROOM AIR-85%. Eyes, Ears, Nose, Throat Exam: PERRL/EOMI, pharynx normal Neck: non-tender Respiratory: chest non-tender, respiratory distress, wheezing Cardiovascular/Chest: no JVD, irregularly irregular Peripheral Pulses: radial,right: 2+, radial,left: 2+ Gastrointestinal/Abdominal: normal bowel sounds, non tender, soft, no organomegaly, no pulsatile mass Rectal Exam: deferred Extremity: normal range of motion Neurologic: swager operator II-XII nml as tested, no motor/sensory deficits, alert Skin Exam: normal color Lymphatic: no adenopathy Progress - Progress Progress: 05/26/18 10:01 Laboratory Results WBC 11.2 K/mm3 (4.8-10.8) H 05/26/18 08:58 RBC 5.12 M/mm3 (4.20-5.40) 05/26/18 08:58 Hgb 15.9 gm/dL (12.0-16.0) 05/26/18 08:58 Hct 48.1 % (36.0-47.0) H 05/26/18 08:58 MCV 94.0 fl (81.0-99.0) 05/26/18 08:58 MCH 31.0 pg (27.0-31.0) 05/26/18 08:58 MCHC 33.0 g/dL (33.0-37.0) 05/26/18 08:58 RDW 14.0 % (11.5-14.5) 05/26/18 08:58 Plt Count 209 K/mm3 (130-400) 05/26/18 08:58 MPV 8.8 fl (7.40-10.4) 05/26/18 08:58 Absolute Neuts (auto) 9.20 K/uL (1.8-6.8) H 05/26/18 08:58 Absolute Lymphs (auto) 1.10 K/uL (1.0-3.4) 05/26/18 08:58 Absolute Monos (auto) 0.70 K/uL (0.2-0.8) 05/26/18 08:58 Absolute Eos (auto) 0.00 K/uL (0.0-0.4) 05/26/18 08:58 Absolute Basos (auto) 0.10 K/uL (0.0-0.1) 05/26/18 08:58 Neutrophils % 82.7 % (42.0-78.0) H 05/26/18 08:58 Lymphocytes % 10.2 % (20.0-50.0) L 05/26/18 08:58 Monocytes % 6.0 % (2.0-9.0) 05/26/18 08:58 Eosinophils % 0.4 % (1.0-5.0) L 05/26/18 08:58 Basophils % 0.7 % (0.0-2.0) 05/26/18 08:58 PT 12.1 SECONDS (9.0-10.9) H 05/26/18 08:58 INR 1.21 (0.9-1.15) H 05/26/18 08:58 PTT (SP) 29.0 SECONDS (21.8-31.6) 05/26/18 08:58 Sodium 141 mmol/L (135-145) 05/26/18 08:58 Potassium 4.0 mmol/L (3.6-5.0) 05/26/18 08:58 Chloride 103 mmol/L (101-111) 05/26/18 08:58 Carbon Dioxide 26 mmol/L (21-31) 05/26/18 08:58 Anion Gap 16.0 (12-18) 05/26/18 08:58 BUN 15 mg/dL (7-18) 05/26/18 08:58 Creatinine 1.07 mg/dL (0.6-1.3) 05/26/18 08:58 BUN/Creatinine Ratio 14.0 (10-20) 05/26/18 08:58 Random Glucose 119 mg/dL (70-105) H 05/26/18 08:58 Serum Osmolality 283.2 mOsm/L (275-295) 05/26/18 08:58 Calcium 9.0 mg/dL (8.4-10.2) 05/26/18 08:58 Total Bilirubin 0.9 mg/dL (0.2-1.0) 05/26/18 08:58 AST 20 IU/L (10-42) 05/26/18 08:58 ALT 28 IU/L (10-60) 05/26/18 08:58 Alkaline Phosphatase 70 IU/L (42-121) 05/26/18 08:58 Troponin I < 0.02 ng/mL (0.01-0.05) 05/26/18 08:58 B-Natriuretic Peptide 221.0 pg/ml (0-100) H* 05/26/18 08:58 Serum Total Protein 6.6 gm/dL (6.4-8.2) 05/26/18 08:58 Albumin 3.9 g/dl (3.2-5.5) 05/26/18 08:58 Globulin 2.7 gm/dL (2.3-3.5) 05/26/18 08:58 Albumin/Globulin Ratio 1.4 (1.1-1.9) 05/26/18 08:58 05/26/18 10:03 AFTER 25 MG OF CARDIZEM NOW HR OF 90. ON 3.5 LTS OF O2: THE SAT IS 92%. THE PATIENT FEELS BETTER AFTER TREATMENT. 05/26/18 10:08 PAGED REESE REINA TO DISCUSS ADMISSION. - Results/Orders Results/Orders: CXR: CARDIOMEGALY W/O FAILURE. EKG; HR OF 138, QRS OF 128, AXIS OF 120 DEGREES. IMPRESSION; AF WITH RVR. Departure - Departure Clinical Impression: COPD exacerbation, Atrial fibrillation with RVR, Hypoxemia Time of Disposition: 10:08 Disposition: Admit Patient Condition: Fair Home Medications: Ambulatory Orders Rivaroxaban [Xarelto] 20 mg PO DAILY 10/17/17 Tramadol HCl [Ultram] 50 mg PO PRN PRN 10/17/17 Trazodone HCl [Trazodone Hydrochloride] 100 mg PO BEDTIME 10/17/17 Lisinopril 10 mg PO DAILY 04/03/18 Mometasone Furoate-Formoterol [Dulera 100-5 Mcg/Act] 1 aer IN DAILY 04/03/18 Furosemide [Lasix] 20 mg PO DAILY #30 tab 04/08/18 Levocetirizine Dihydrochloride [Xyzal Allergy 24Hr] 5 mg PO BEDTIME #30 tab 04/08/18 Pantoprazole Sodium [Protonix] 20 mg PO DAILY #30 tab 04/08/18 Potassium Chloride Tab [Micro-K] 10 meq PO DAILYBK #30 tab 04/08/18 guaiFENesin ER TAB [Mucinex Tab] 1,200 mg PO BID tab 04/08/18 Diltiazem HCl Coated Beads [Cartia Xt] 180 mg PO DAILY 05/26/18 Metoprolol Tartrate 50 mg PO BID 05/26/18 Critical Care Note - Critical Care Note Total Time (mins): 35 Comments: CRITICAL EVENT: SHORTNESS OF BREATH CRITICAL FINDINGS: O2 SAT OF 85 RA. AF WITH RVR OF 130 CRITICAL ACTIONS: OXYGEN THERAPY, DUO NEB, CARDIZEN IVP, STEROIDS, ADMISSION TO THE HOSPITAL CRITICAL TIME; 35 MINUTES SYSTEMS AT RISK: CARDIOVASCULAR, RESPIRATORY Decision To Admit - Decistion To Admit Decision to Admit Date: 05/26/18 Decision to Admit Time: 10:05
--- NOTE | 2018-05-26 09:35 | RAD ---
EXAM DESCRIPTION: Chest,1 View CLINICAL HISTORY: 72 years Female, sob COMPARISON: Previous study April 07, 2018 TECHNIQUE: AP portable chest. FINDINGS: Heart size is large with prominent central pulmonary vascularity. No consolidating infiltrate. No pulmonary mass or worrisome nodule. No pneumothorax or pleural effusion. Bones are unremarkable. IMPRESSION: Large heart without congestive failure. Electronically signed by: Tone Boggs MD 05/26/2018 9:32 AM CDT
--- NOTE | 2018-05-26 11:09 | HP ---
SUPERVISING PHYSICIAN: Brandon St M.D. CHIEF COMPLAINT: Shortness of breath and cough. HISTORY OF PRESENT ILLNESS: This is a 72 year-old female patient who has had shortness of breath and coughing for 2 days. It worsened to the point last night that she felt she should come into the hospital so she came in early this morning. On arrival to the Emergency Room, she was tachycardic and vomiting. Her EKG showed atrial fibrillation with rapid ventricular response in the 120s. She is on Cardizem at home. She was given some IV Cardizem in the Emergency Room and that brought her heart rate down to about 100. Her O2 sats were in the mid 80s with a respiratory rate of 32. She said she had been febrile at home but was unsure about the temperature. In the E. R., her temperature was 100.6. She was given a breathing treatment as well as some Solu-Medrol. Her initial labs showed electrolytes that were within normal limits, but a slightly elevated glucose at 119. She did have an elevated BNP of 221 but she has no history of congestive heart failure. She does have a history of atrial fibrillation RVR and is presently on Cardizem as well as Xarelto. Her white count was elevated at 11.2 with a left shift on her differential. Hemoglobin was 15.9, hematocrit 48.1. She has a significant history of chronic obstructive pulmonary disease. She quit smoking approximately 3 years ago but has a greater than 100 year pack history. Chest x-ray showed large heart without congestive failure. I was called for hospital admission. PAST MEDICAL HISTORY: 1. Atrial fibrillation on Cardizem and Xarelto. 2. Chronic obstructive pulmonary disease. 3. Hypertension. 4. Diverticulitis. 5. Gastroesophageal reflux disease. 6. Macular degeneration. PAST SURGICAL HISTORY: 1. Appendectomy. 2. Cholecystectomy. 3. Left total knee arthroplasty. 4. Bilateral cataract surgery. 5. Colon resection due to diverticulitis. CURRENT MEDICATIONS: Per the EMR and awaiting verification. ALLERGIES: NSAIDs AND PENICILLIN. FAMILY HISTORY: SOCIAL HISTORY: She lives alone. She lives in [place]. She denies any tobacco use at this time, although she quit approximately 3 years ago. She had been smoking 2 pack daily since she was age 14. She rarely drinks a glass of wine. Denies any illicit drug use. REVIEW OF SYSTEMS: Positive for fever and fatigue. Negative for weight changes. HEENT: Negative for sinus symptoms, vision changes, ear pain or sore throat. RESPIRATORY: As per History of Present Illness. CARDIAC: Negative for chest pain. GASTROINTESTINAL: Positive for vomiting and nausea. Negative for diarrhea or constipation. GENITOURINARY: Negative for hematuria, dysuria or polyuria. MUSCULOSKELETAL: Positive for chronic back pain. Negative for arthralgias or myalgias. SKIN: Negative for lesions or rashes. NEUROLOGIC: Negative for headaches, dizziness or seizures. PHYSICAL EXAMINATION: VITAL SIGNS: Temperature 98.1, heart rate 110, blood pressure 119/75, respiratory rate 22, O2 sat is 91% on 3 liters nasal cannula. GENERAL: This is a 72 year-old female patient who is sitting up in her hospital bed. She is in mild respiratory distress. HEENT: Normocephalic and atraumatic. Pupils are equal and reactive. Oropharynx is clear. NECK: Supple without mass. CHEST: Diminished breath sounds throughout. There is equal rise and fall of the chest with inspiration and expiration. CARDIOVASCULAR: Mildly tachycardic rate, irregular rhythm. Atrial fibrillation on the cardiac technologist. GASTROINTESTINAL: Abdomen is soft, nondistended, non-tender. Bowel sounds are positive. EXTREMITIES: No clubbing, cyanosis or edema. NEUROLOGIC: She is awake, alert and oriented times three. LABORATORY: Labs and films are as per history of present illness. ASSESSMENT: 1. Sepsis secondary to acute on chronic bronchitis with concerns for developing community acquired pneumonia with temperature of 100.6, heart rate 123, respiratory rate 32 and O2 sat 85% on admission. 2. Atrial fibrillation with rapid ventricular response that may have been exacerbated by #1 as well as multiple breathing treatments. She does have a history of atrial fibrillation and she is presently on Cardizem and Xarelto. 3. Mildly elevated BNP of 221 without a history of congestive heart failure and no signs or symptoms of an acute exacerbation. She may benefit from a cardiac workup after discharge. 4. Hypertension. 5. Gastroesophageal reflux disease. PLAN: We will admit the patient to the hospital. I have initiated the pneumonia guidelines and started her on routine nebulizer treatments as well as p.r.n. treatments. Will start her on azithromycin and Rocephin. We will repeat her lab in the morning as well as a chest x-ray. Will do aggressive pulmonary hygiene. I will restart her home medications as soon as they are verified. I have also put her on an IV steroid taper. She has concerns for her sleep so I have started her on some Restoril as needed. She will probably benefit from a cardiac workup on discharge as we have no present echocardiogram on her chart for review and she did have a mildly elevated BNP. Otherwise we will continue to monitor closely and follow as needed. [facility][id number] [facility]
[2018-05-26] MEDS ORDERED: LEVALBUTEROL NEBS 1.25 MG/3 ML VIAL INH PRN (11:41)
[2018-05-26] MEDS ORDERED: SODIUM CHLORIDE 0.45% 1000ML 1,000 ML IVS ONE (11:46)
[2018-05-26] MEDS ORDERED: traMADol HCL 50 MG TAB PO PRN (11:47)
[2018-05-26] MEDS: RIVAROXABAN 10 MG TAB PO SCH (12:21)
[2018-05-26] MEDS: FUROSEMIDE 40 MG TAB PO SCH (12:21)
[2018-05-26] MEDS: LISINOPRIL 10 MG TAB PO SCH (12:21)
[2018-05-26] MEDS: diltiaZEM HCL CD 180 MG CAP PO SCH (12:23)
[2018-05-26] MEDS: IV SET AND CAP CHANGE INJ INJ SCH (12:23)
[2018-05-26] MEDS: IPRATROPIUM/ALBUTEROL 3 ML VIAL INH SCH ×3 (13:43→20:13)
[2018-05-26] MEDS: methylPREDNISolone SODIUM SUC 125 MG/2 ML VIAL IV SCH ×2 (14:08→21:36)
[2018-05-26] MEDS ORDERED: PANTOPRAZOLE SODIUM TAB 40 MG PO ONE (19:44)
[2018-05-26] MEDS ORDERED: SODIUM CHLORIDE 0.9% 250ML 250 ML ONE (20:50)
[2018-05-26] MEDS ORDERED: SODIUM CHL 0.9% 50ML MIN-BAG+ 50 ML IVPB ONE (20:51)
[2018-05-26] MEDS ORDERED: cefTRIAXone SODIUM 1 GM VIAL ONE (20:51)
[2018-05-26] MEDS ORDERED: AZITHROMYCIN IV 500 MG VIAL IVPB ONE (20:52)
[2018-05-26] MEDS: cefTRIAXone SODIUM 1 GM in SODIUM CHL 0.9% 50ML MIN-BAG+ 50 ML IVPB SCH (20:58)
[2018-05-26] MEDS: METOPROLOL TARTRATE 50 MG TAB PO SCH (21:02)
[2018-05-26] MEDS: traZODone HCL 100 MG TAB PO SCH (21:02)
[2018-05-26] MEDS: guaiFENesin ER TAB 600 MG TAB PO SCH (21:02)
[2018-05-26] MEDS: SODIUM CHLORIDE 0.9% (FLUSH) 10 ML SYG IV SCH (21:03)
[2018-05-26] MEDS ORDERED: PANTOPRAZOLE SODIUM IV 40 MG VIAL ONE (21:10)
[2018-05-26] MEDS: AZITHROMYCIN IV 500 MG in SODIUM CHLORIDE 0.9% 250ML 250 ML IVPB SCH (21:33)
[2018-05-26] MEDS: TEMAZEPAM 15 MG CAP PO PRN (22:51)
[2018-05-27] MEDS: PANTOPRAZOLE SODIUM IV 40 MG VIAL IV SCH (06:10)
[2018-05-27] MEDS: methylPREDNISolone SODIUM SUC 125 MG/2 ML VIAL IV SCH ×3 (06:11→21:19)
[2018-05-27] MEDS: SODIUM CHLORIDE 0.9% (FLUSH) 10 ML SYG IV PRN (06:12)
--- NOTE | 2018-05-27 07:08 | RAD ---
EXAM: Two view chest. INDICATION: Pneumonia. COMPARISON: Chest x-ray: 05/26/2018. FINDINGS: There are right perihilar opacities. The left lung is clear. The heart is mildly enlarged. There is no pneumothorax or pleural effusion. The bones are unchanged. IMPRESSION: Right perihilar opacities, which may represent an atypical infection or vascular congestion. Electronically signed by: Nikolai Bright MD 05/27/2018 7:05 AM CDT Workstation: [id number]
[2018-05-27] MEDS: POTASSIUM CHLORIDE 10 MEQ TAB PO SCH (07:44)
[2018-05-27] MEDS: IPRATROPIUM/ALBUTEROL 3 ML VIAL INH SCH ×2 (08:39→12:40)
[2018-05-27] MEDS: FUROSEMIDE 40 MG TAB PO SCH (09:30)
[2018-05-27] MEDS: METOPROLOL TARTRATE 50 MG TAB PO SCH ×2 (09:31→21:18)
[2018-05-27] MEDS: guaiFENesin ER TAB 600 MG TAB PO SCH ×2 (09:32→21:18)
[2018-05-27] MEDS: LISINOPRIL 10 MG TAB PO SCH (09:32)
[2018-05-27] MEDS: diltiaZEM HCL CD 180 MG CAP PO SCH (09:32)
[2018-05-27] MEDS: SODIUM CHLORIDE 0.9% (FLUSH) 10 ML SYG IV SCH ×2 (09:33→21:18)
[2018-05-27] MEDS: RIVAROXABAN 10 MG TAB PO SCH (12:29)
--- NOTE | 2018-05-27 15:49 | PN ---
DATE: 05/27/18 SUPERVISING PHYSICIAN: Brandon St M.D. SUBJECTIVE: The patient is lying in bed. He is presently doing a breathing treatment. He complains of exertional shortness of breath as well as a cough, but she does feel improved since yesterday. Denies nausea, vomiting or chest pain. OBJECTIVE: VITAL SIGNS: Temperature 97.8, heart rate runs between 105 and 129, blood pressure 110/78, respiratory rate 22, O2 sat 95%on 3.5 liters nasal cannula. RESPIRATORY: Diminished breath sounds throughout, although today there are a few scattered rhonchi in the upper lung mauro. CARDIAC: Tachycardic rate, irregular rhythm. GASTROINTESTINAL: Abdomen is soft, nondistended, non- tender. Bowel sounds are positive. EXTREMITIES: No clubbing, cyanosis or edema. NEUROLOGIC: She is awake, alert and oriented times three. LABORATORY: WBCs have improved to 10,300 with a left shift on differential. Hemoglobin 14.2, hematocrit 42.9. Electrolytes are basically within normal limits. Glucose is slightly elevated at 152 most likely due to steroids. Sputum culture is pending. Chest x-ray shows right perihilar opacities which may represent an atypical infection or vascular congestion. All other labs and films have been reviewed via the EMR. ASSESSMENT: 1. Sepsis secondary to acute on chronic bronchitis with concerns for developing community acquired pneumonia with temperature of 100.6, heart rate 123, respiratory rate 32 and O2 sat 85% on admission. 2. Atrial fibrillation with rapid ventricular response most likely exacerbated by #1 and multiple breathing treatments. She has an extensive history of atrial fibrillation presently on Cardizem and Xarelto. She continues to have slightly elevated heart rate. 3. Mildly elevated BNP of 221 without a history of congestive heart failure and no signs or symptoms of an acute exacerbation. She may benefit from a cardiac workup after discharge. 4. Hypertension. 5. Gastroesophageal reflux disease. PLAN: We will continue present supportive care. Given her chest x-ray results, we will watch her clinical response to the azithromycin and Rocephin, and continue to monitor her sputum culture results. I will hold off on lab and chest x-ray for tomorrow. I have decreased her IV steroids. I may give her a small dose of p.o. Cardizem and increase her routine Cardizem to 240 tomorrow as her heart rate is still in the 100s to 120s. We will continue with aggressive pulmonary hygiene and continue to follow her closely and treat as needed. #[id number] [facility]
[2018-05-27] MEDS: LEVALBUTEROL NEBS 1.25 MG/3 ML VIAL NEB SCH ×2 (16:33→21:05)
[2018-05-27] MEDS: diltiaZEM HCL TAB 30 MG TAB PO SCH ×2 (17:08→21:18)
[2018-05-27] MEDS ORDERED: SODIUM CHLORIDE 0.9% 250ML 250 ML ONE (21:02)
[2018-05-27] MEDS ORDERED: SODIUM CHL 0.9% 50ML MIN-BAG+ 50 ML IVPB ONE (21:03)
[2018-05-27] MEDS ORDERED: cefTRIAXone SODIUM 1 GM VIAL ONE (21:04)
[2018-05-27] MEDS ORDERED: AZITHROMYCIN IV 500 MG VIAL IVPB ONE (21:05)
[2018-05-27] MEDS: cefTRIAXone SODIUM 1 GM in SODIUM CHL 0.9% 50ML MIN-BAG+ 50 ML IVPB SCH (21:17)
[2018-05-27] MEDS: traZODone HCL 100 MG TAB PO SCH (21:18)
[2018-05-27] MEDS: AZITHROMYCIN IV 500 MG in SODIUM CHLORIDE 0.9% 250ML 250 ML IVPB SCH (22:25)
[2018-05-27] MEDS: TEMAZEPAM 15 MG CAP PO PRN (22:44)
[2018-05-28] MEDS ORDERED: diltiaZEM HCL TAB 30 MG TAB ONE (05:17)
[2018-05-28] MEDS: diltiaZEM HCL TAB 30 MG TAB PO SCH ×2 (05:22→21:07)
[2018-05-28] MEDS: methylPREDNISolone SODIUM SUC 125 MG/2 ML VIAL IV SCH (06:07)
[2018-05-28] MEDS: PANTOPRAZOLE SODIUM IV 40 MG VIAL IV SCH (06:07)
[2018-05-28] MEDS: POTASSIUM CHLORIDE 10 MEQ TAB PO SCH (07:36)
[2018-05-28] MEDS: LEVALBUTEROL NEBS 1.25 MG/3 ML VIAL NEB SCH ×4 (08:41→19:46)
[2018-05-28] MEDS: guaiFENesin ER TAB 600 MG TAB PO SCH ×2 (09:52→21:17)
[2018-05-28] MEDS: FUROSEMIDE 40 MG TAB PO SCH (09:52)
[2018-05-28] MEDS: LISINOPRIL 10 MG TAB PO SCH (09:52)
[2018-05-28] MEDS: METOPROLOL TARTRATE 50 MG TAB PO SCH ×2 (09:52→21:17)
[2018-05-28] MEDS: SODIUM CHLORIDE 0.9% (FLUSH) 10 ML SYG IV SCH ×2 (09:56→21:20)
[2018-05-28] MEDS: RIVAROXABAN 10 MG TAB PO SCH (11:49)
[2018-05-28] MEDS: methylPREDNISolone SODIUM SUC 40 MG/ML VIAL IV SCH ×2 (14:32→21:58)
--- NOTE | 2018-05-28 17:55 | PN ---
DATE: 05/28/18 SUPERVISING PHYSICIAN: Brandon St M.D. SUBJECTIVE: The patient is sitting up on the side of her bed. She is quite concerned that her heart rate goes up very high, especially when she coughs. I explained to her after reviewing her EKG rhythm strips that she does go up into the 120s but she drops back down into the 90s shortly thereafter, and most likely her accelerated heart rate is due to her breathing. We also discussed that she would need to followup with Dr. Mcmanus as soon as possible. Otherwise she continues to have shortness of breath and coughing but it has improved. We also discussed her followup with Dr. Mcmanus, her community sports coordinator. He will not be in clinic until the and we will set her up with an appointment at that time. OBJECTIVE: VITAL SIGNS: Temperature 98, heart rate 97. It has been as high as 124. blood pressure 115/77, respiratory rate 20, O2 sats are 93% on 2.5 liters nasal cannula. RESPIRATORY: Diminished breath sounds throughout. She has a few expiratory wheezes noted in all lung mauro. She is tachypneic and has to speak in short phrases. CARDIAC: Regular to slightly tachycardic rate, irregular rhythm. GASTROINTESTINAL: Abdomen is soft, nondistended, non-tender. Bowel sounds are positive. EXTREMITIES: No clubbing, cyanosis or edema. NEUROLOGIC: She is awake, alert and oriented times three. LABORATORY: There are no labs or films to report at this time. ASSESSMENT: 1. Sepsis secondary to acute on chronic bronchitis with concerns for developing community acquired pneumonia with temperature of 100.6, heart rate 123, respiratory rate 32 and O2 sat 85% on admission. 2. Atrial fibrillation with rapid ventricular response most likely exacerbated by #1 and multiple breathing treatments. She has an extensive history of atrial fibrillation presently on Cardizem and Xarelto. She continues to have slightly elevated heart rate. Her Cardizem was increased from 180 to 240. 3. Mildly elevated BNP of 221 without a history of congestive heart failure and no signs or symptoms of an acute exacerbation. She may benefit from a cardiac workup after discharge. 4. Hypertension. 5. Gastroesophageal reflux disease. PLAN: We will continue present supportive care. Hopefully we can get her through this exacerbation of her COPD with a fairly well controlled heart rate. She will need a followup appointment with Gali Mohan as well as Dr. Mcmanus. Her questionnaire showed high risk for BECKI and will need to get her set up with a sleep study prior to discharge. Also get her an appointment with Dr. Mcmanus. I feel that her accelerated heart rate is due to her COPD because at rest her rate is controlled in the 80s and 90s. Her IV steroids have been tapered to a p.o. prednisone. Will continue with her present antibiotic therapy. I have also encouraged her to ambulate some in the hallways as well as to get up in her chair and to continue with good pulmonary hygiene. Will continue to monitor closely and follow as needed. #[id number] [facility]
[2018-05-28] MEDS ORDERED: SODIUM CHL 0.9% 50ML MIN-BAG+ 50 ML IVPB ONE (19:51)
[2018-05-28] MEDS ORDERED: cefTRIAXone SODIUM 1 GM VIAL ONE (19:52)
[2018-05-28] MEDS ORDERED: SODIUM CHLORIDE 0.9% 250ML 250 ML ONE (19:53)
[2018-05-28] MEDS ORDERED: AZITHROMYCIN IV 500 MG VIAL IVPB ONE (19:54)
[2018-05-28] MEDS: cefTRIAXone SODIUM 1 GM in SODIUM CHL 0.9% 50ML MIN-BAG+ 50 ML IVPB SCH (21:17)
[2018-05-28] MEDS: traZODone HCL 100 MG TAB PO SCH (21:17)
[2018-05-28] MEDS: TEMAZEPAM 15 MG CAP PO PRN (21:18)
[2018-05-28] MEDS: AZITHROMYCIN IV 500 MG in SODIUM CHLORIDE 0.9% 250ML 250 ML IVPB SCH (21:58)
[2018-05-28] MEDS: SODIUM CHLORIDE 0.9% (FLUSH) 10 ML SYG IV PRN (21:59)
[2018-05-29] MEDS: diltiaZEM HCL TAB 30 MG TAB PO SCH (03:05)
[2018-05-29] MEDS: methylPREDNISolone SODIUM SUC 40 MG/ML VIAL IV SCH (05:57)
[2018-05-29] MEDS: PANTOPRAZOLE SODIUM IV 40 MG VIAL IV SCH (06:05)
--- NOTE | 2018-05-29 07:28 | RAD ---
EXAM DESCRIPTION: Chest,2 Views: CR/ CLINICAL HISTORY: 72 years Female copd COMPARISON: 2 view chest 05/27/2018. TECHNIQUE: Two views. PA and Lateral. FINDINGS: Lungs: Hyperinflation bilaterally with chronic bibasilar densities unchanged. Pleural spaces: No effusion or pneumothorax bilaterally. Heart: Borderline enlargement stable. Pulmonary Vascularity: Not increased. Mediastinum: Not widened. Round radiodensity in the midline over the thoracic spine seen several centimeters above the GE junction but not seen on the lateral view. Aorta: Atherosclerotic calcifications and shape unchanged. Bony Thorax/Spine: No acute bony thoracic abnormalities. Stable. IMPRESSION: Mild air trapping but no acute infiltrate or pleural effusion. Radiodensity over the lower mediastinum on the PA view may represent an article of clothing not seen on the lateral view. Stable cardiomegaly with pulmonary vascularity not increased. Electronically signed by: Dayton Mills MD 05/29/2018 7:25 AM CDT
[2018-05-29] MEDS: POTASSIUM CHLORIDE 10 MEQ TAB PO SCH (08:02)
[2018-05-29] MEDS: METOPROLOL TARTRATE 50 MG TAB PO SCH ×2 (09:07→20:27)
[2018-05-29] MEDS: guaiFENesin ER TAB 600 MG TAB PO SCH ×2 (09:07→20:28)
[2018-05-29] MEDS: predniSONE 20 MG TAB PO SCH (09:07)
[2018-05-29] MEDS: LISINOPRIL 10 MG TAB PO SCH (09:07)
[2018-05-29] MEDS: FUROSEMIDE 40 MG TAB PO SCH (09:07)
[2018-05-29] MEDS: SODIUM CHLORIDE 0.9% (FLUSH) 10 ML SYG IV SCH ×2 (09:08→20:28)
[2018-05-29] MEDS: LEVALBUTEROL NEBS 1.25 MG/3 ML VIAL NEB SCH ×4 (09:38→21:21)
[2018-05-29] MEDS: RIVAROXABAN 10 MG TAB PO SCH (12:01)
[2018-05-29] MEDS: IV SET AND CAP CHANGE INJ INJ SCH (12:01)
[2018-05-29] MEDS ORDERED: FUROSEMIDE INJ 40 MG/4 ML VIAL IV ONE (12:26)
[2018-05-29] MEDS ORDERED: ALPRAZolam 0.25 MG TAB PO ONE (12:34)
[2018-05-29] MEDS: SODIUM CHLORIDE 0.9% (FLUSH) 10 ML SYG IV PRN (13:35)
[2018-05-29] MEDS: BUDESONIDE NEBS 0.5 MG/2 ML VIAL NEB SCH ×2 (13:49→21:22)
[2018-05-29] MEDS ORDERED: predniSONE 20 MG TAB PO ONE (17:00)
[2018-05-29] MEDS ORDERED: SODIUM CHL 0.9% 50ML MIN-BAG+ 50 ML IVPB ONE (19:47)
[2018-05-29] MEDS ORDERED: SODIUM CHLORIDE 0.9% 250ML 250 ML ONE (19:47)
[2018-05-29] MEDS ORDERED: AZITHROMYCIN IV 500 MG VIAL IVPB ONE (19:48)
[2018-05-29] MEDS ORDERED: PANTOPRAZOLE SODIUM TAB 40 MG PO ONE (19:48)
[2018-05-29] MEDS ORDERED: cefTRIAXone SODIUM 1 GM VIAL ONE (19:48)
[2018-05-29] MEDS: cefTRIAXone SODIUM 1 GM in SODIUM CHL 0.9% 50ML MIN-BAG+ 50 ML IVPB SCH (20:27)
[2018-05-29] MEDS: MONTELUKAST 10 MG TAB PO SCH (20:27)
[2018-05-29] MEDS: traZODone HCL 100 MG TAB PO SCH (20:28)
[2018-05-29] MEDS ORDERED: diltiaZEM DRIP 125 MG/25 ML VIAL IVPB ONE (21:39)
[2018-05-29] MEDS: TEMAZEPAM 15 MG CAP PO PRN (21:50)
[2018-05-29] MEDS: ALPRAZolam 0.5 MG TAB PO PRN (21:51)
[2018-05-29] MEDS: AZITHROMYCIN IV 500 MG in SODIUM CHLORIDE 0.9% 250ML 250 ML IVPB SCH (21:51)
[2018-05-30] MEDS: PANTOPRAZOLE SODIUM TAB 40 MG PO SCH (05:59)
[2018-05-30] MEDS: BUDESONIDE NEBS 0.5 MG/2 ML VIAL NEB SCH ×2 (08:40→20:10)
[2018-05-30] MEDS: LEVALBUTEROL NEBS 1.25 MG/3 ML VIAL NEB SCH ×4 (08:40→20:10)
[2018-05-30] MEDS: POTASSIUM CHLORIDE 10 MEQ TAB PO SCH (09:37)
[2018-05-30] MEDS: FUROSEMIDE 40 MG TAB PO SCH (09:37)
[2018-05-30] MEDS: predniSONE 20 MG TAB PO SCH (09:38)
[2018-05-30] MEDS: METOPROLOL TARTRATE 50 MG TAB PO SCH ×2 (09:38→20:35)
[2018-05-30] MEDS: LISINOPRIL 10 MG TAB PO SCH (09:42)
[2018-05-30] MEDS: guaiFENesin ER TAB 600 MG TAB PO SCH ×2 (09:42→20:36)
[2018-05-30] MEDS: SODIUM CHLORIDE 0.9% (FLUSH) 10 ML SYG IV SCH ×2 (09:42→20:40)
--- NOTE | 2018-05-30 10:27 | PN ---
DATE: 05/29/18 SUPERVISING PHYSICIAN: Marquise Mack MD SUBJECTIVE: The patient notes that she continues to feel short of breath even at rest. We discussed that she will likely need some oxygen when she goes home. Her heart rate has been fairly well-controlled on Cardizem. She was supposed to see Dr. Mcmanus, however, he is not available until the . She has had no chest pains, no nausea. OBJECTIVE: VITAL SIGNS: Temperature 97.5, pulse 98, blood pressure 134/76, respiratory rate 20, saturation 98% on 2 liters nasal cannula at rest. I&O: Positive balance of 1300 with 2200 in, out with negative of 900. She has had one bowel movement. Weight is 110.3 kg. GENERAL: The patient appears to be a little anxious but in no distress. She is alert.. CHEST: Lung sounds are diminished throughout with some inspiratory and expiratory wheezing in both mauro. CARDIAC: Slightly irregular rate and rhythm. ABDOMEN: Soft, non-tender, positive bowel sounds. EXTREMITIES: Trace of edema. NEUROLOGIC: She is alert and oriented times three. LABORATORY: White count 17,300, hemoglobin 13.9, hematocrit 42.6, platelet count 211,000. Differential does show a left shift. Chemistries show normal electrolytes. BUN 25, creatinine 0.8. Chest x-ray per radiology interpretation showed mild air trapping but no acute infiltrate or pleural effusions. There was radiodensity overlying the lower mediastinum on the PA view, may represent article of clothing not seen on the lateral view. Stable cardiomegaly with pulmonary vasculature not increased. ASSESSMENT: 1. Sepsis secondary to acute on chronic bronchitis with concerns for developing community acquired pneumonia with temperature of 100.6, heart rate 123, respiratory rate 32 and O2 sat 85% on admission. 2. Exacerbation secondary to #1 requiring continued 02 and ongoing steroids, showing slow clinical improvement. 3. Atrial fibrillation with rapid ventricular response most likely exacerbated by #1 and multiple breathing treatments. She has an extensive history of atrial fibrillation presently on Cardizem and Xarelto. She continues to have slightly elevated heart rate. Her Cardizem was increased from 180 to 240. 4. Mildly elevated BNP to 221 on admission with no history of congestive heart failure with no overt signs or exacerbation but showing some peripheral edema, possibly some contributing factor to her continued shortness of breath. 5. Hypertension, stable. 6. Gastroesophageal reflux disease. PLAN: Giving that she is still having significant shortness of breath and seems to be quite anxious, will give her a little bit of Lasix today in addition to her normal dose to see if we can diurese a little bit of fluid off. Am going to go ahead and start her on some inhaled steroids with Pulmicort as well as increase her single dose today of prednisone to this afternoon with a second dose as she was just started on oral steroids today and seems to be having a little bit of continued wheezing. Will try a second dose of prednisone at 40 mg. She is a little bit anxious, will try some Xanax as she notes she feels like this might help her with some of her issues of feeling like she is short of breath. Will hold off on repeating labs as her labs have been fairly stable. Her white count is going up but she has been on corticosteroids. Will plan to reevaluate clinically tomorrow and ancipitate; probably discharging either later tomorrow or Friday, depending on how she responds to current treatment plan. Will go ahead and see if she will qualify for oxygen. At this point, I believe she will. Until she can transition to outpatient management, we will continue to monitor and treat as needed. #[id number] [facility]
[2018-05-30] MEDS ORDERED: FUROSEMIDE INJ 40 MG/4 ML VIAL IV ONE (12:22)
[2018-05-30] MEDS: RIVAROXABAN 10 MG TAB PO SCH (14:05)
[2018-05-30] MEDS: methylPREDNISolone SODIUM SUC 125 MG/2 ML VIAL IV SCH ×2 (14:15→17:58)
[2018-05-30] MEDS ORDERED: SODIUM CHL 0.9% 50ML MIN-BAG+ 50 ML IVPB ONE (19:57)
[2018-05-30] MEDS ORDERED: SODIUM CHLORIDE 0.9% 250ML 250 ML ONE (19:57)
[2018-05-30] MEDS ORDERED: cefTRIAXone SODIUM 1 GM VIAL ONE (19:58)
[2018-05-30] MEDS ORDERED: AZITHROMYCIN IV 500 MG VIAL IVPB ONE (20:00)
[2018-05-30] MEDS: MONTELUKAST 10 MG TAB PO SCH (20:35)
[2018-05-30] MEDS: ALPRAZolam 0.5 MG TAB PO PRN (20:35)
[2018-05-30] MEDS: traZODone HCL 100 MG TAB PO SCH (20:36)
[2018-05-30] MEDS: cefTRIAXone SODIUM 1 GM in SODIUM CHL 0.9% 50ML MIN-BAG+ 50 ML IVPB SCH (20:39)
--- NOTE | 2018-05-30 20:48 | PN ---
DATE: 05/30/18 SUPERVISING PHYSICIAN: Marquise Mack M.D. SUBJECTIVE: Again last night the patient had an episode of RVR requiring some IV Cardizem and an increase in her p.o. Cardizem. She has had no chest pains associated with it but does have a significant amount of shortness of breath when it occurs. She continues to have a good deal of wheezing and is short of breath with minimal exertional effort. She has had no nausea or vomiting. OBJECTIVE: VITAL SIGNS: Temperature 98.7, pulse 78, blood pressure 126/91, respirations 20, satting 97% on 2 liters nasal cannula. CHEST: Lung sounds are diminished towards the bases with some inspiratory and expiratory wheezing heard bilaterally. HEART: Slightly irregular rate and rhythm with a controlled ventricular rate on the monitor at time of assessment. ABDOMEN: Soft, non- tender. Positive bowel sounds. EXTREMITIES: Just a trace of edema bilaterally. LABORATORY: No additional laboratory studies. No additional radiographic studies. ASSESSMENT: 1. Sepsis secondary to acute on chronic bronchitis with concerns for developing community acquired pneumonia with temperature of 100.6, heart rate 123, respiratory rate 32 and O2 sat 85% on admission. 2. Exacerbation secondary to #1 requiring continued 02 and ongoing steroids, showing slow clinical improvement. 3. Atrial fibrillation with rapid ventricular response most likely exacerbated by #1 and multiple breathing treatments. She has an extensive history of atrial fibrillation presently on Cardizem and Xarelto. She continues to have slightly elevated heart rate. Her Cardizem has now increased from 240 to 360. 4. Mildly elevated BNP to 221 on admission with no history of congestive heart failure with no overt signs or exacerbation but showing some peripheral edema, possibly some contributing factor to her continued shortness of breath. 5. Hypertension, stable. 6. Gastroesophageal reflux disease. PLAN: Will continue to monitor the patient closely and continue with plan of care. In regards to steroids, will continue on IV steroids as p.o. steroids were started yesterday but she seems to have a slight set back. I have increased her Cardizem from 240 to 360. Will give her a 240 dose in the morning and then a 120 dose later tonight with the intention of giving a daily dose of 360 to see how she does. She continues on a beta romain which could be possibly resulting in some of her reactive airway problems, but at this point she has not had good control of her ventricular rate. I hesitate to discontinue any of the beta blockers. I have encouraged her to ambulate. Will continue to monitor the patient until she can transition to outpatient management. #[id number] [facility]
[2018-05-30] MEDS: AZITHROMYCIN IV 500 MG in SODIUM CHLORIDE 0.9% 250ML 250 ML IVPB SCH (21:37)
[2018-05-30] MEDS: TEMAZEPAM 15 MG CAP PO PRN (21:37)
[2018-05-31] MEDS: methylPREDNISolone SODIUM SUC 125 MG/2 ML VIAL IV SCH (00:13)
[2018-05-31] MEDS: PANTOPRAZOLE SODIUM TAB 40 MG PO SCH (06:05)
--- NOTE | 2018-05-31 06:25 | RAD ---
Chest 2 view on 05/31/2018 CLINICAL INDICATION: COPD exacerbation COMPARISON: 05/29/2018 FINDINGS: Vascular calcification is noted in the aorta. Mild emphysematous changes of the lungs are noted. Cardiac, hilar and mediastinal contours are within normal limits. Lungs are otherwise clear. No bony abnormality is noted. A few overlying wires are noted. IMPRESSION: No significant change in the appearance of the chest. Electronically signed by: Grant Nettles 05/31/2018 6:22 AM CDT
[2018-05-31] MEDS: guaiFENesin ER TAB 600 MG TAB PO SCH ×2 (08:31→21:09)
[2018-05-31] MEDS: diltiaZEM HCL CD 180 MG CAP PO SCH (08:31)
[2018-05-31] MEDS: METOPROLOL TARTRATE 50 MG TAB PO SCH ×2 (08:32→21:10)
[2018-05-31] MEDS: FUROSEMIDE 40 MG TAB PO SCH (08:32)
[2018-05-31] MEDS: predniSONE 20 MG TAB PO SCH (08:32)
[2018-05-31] MEDS: POTASSIUM CHLORIDE 10 MEQ TAB PO SCH (08:32)
[2018-05-31] MEDS: LEVALBUTEROL NEBS 1.25 MG/3 ML VIAL NEB SCH ×4 (08:38→20:50)
[2018-05-31] MEDS: BUDESONIDE NEBS 0.5 MG/2 ML VIAL NEB SCH ×2 (08:38→20:50)
[2018-05-31] MEDS: LISINOPRIL 10 MG TAB PO SCH (09:15)
[2018-05-31] MEDS: ALPRAZolam 0.5 MG TAB PO PRN ×2 (09:15→21:10)
[2018-05-31] MEDS: SODIUM CHLORIDE 0.9% (FLUSH) 10 ML SYG IV SCH ×2 (09:17→21:15)
[2018-05-31] MEDS: RIVAROXABAN 10 MG TAB PO SCH (13:00)
--- NOTE | 2018-05-31 17:00 | PN ---
DATE: 05/31/18 SUPERVISING PHYSICIAN: Marquise Mack M.D. SUBJECTIVE: The patient continues to be okay at rest which I think is her baseline, but any efforts to go to the toilet or up to a chair her heart rate goes up significantly and she starts having some symptoms of shortness of breath, but no actual chest pains. I have discussed with her that we are trying to get her back to her baseline, but after that we are going to have to try to get her to rehab to get endurance built and I believe her heart rate is just related to significant deconditioning, but she is close to her baseline activity levels. She is hoping to go to [facility] and will start that referral as soon as possible. OBJECTIVE: VITAL SIGNS: Pulse 88, blood pressure 139/85, respirations 18, satting 94% on nasal cannula at rest on 3 liters. She is actually satting 91% on room air. I's and O's show she is at a negative balance of 3125 with 835 in, 3960 out. Weight is 109.2 kg. GENERAL: The patient is resting comfortably. Appears to be in no acute distress. She is able to talk in full sentences but does appear short of breath with any exertional movement. She is alert. CHEST: Lung sounds continue to be diminished towards the bases. No obvious inspiratory or expiratory wheezing but she does have some bilateral faint rhonchi heard more prominent on the posterolateral aspects of both lungs. HEART: Slightly irregular rate and rhythm. ABDOMEN: Non-tender. Positive bowel sounds. EXTREMITIES: Without any edema today. LABORATORY: White count is down to 14,000. Differential does show a left shift with 2+% bands. Chemistries show normal electrolytes with BUN 27, creatinine 0.84. RADIOLOGY: Repeat chest x-ray per radiology interpretation of 2 view chest showed no significant change in appearance of the chest from previous on 05/29/18. ASSESSMENT: 1. Sepsis secondary to acute on chronic bronchitis with concerns for developing community acquired pneumonia with temperature of 100.6, heart rate 123, respiratory rate 32 and O2 sat 85% on admission. The patient now shows a slight increase in bands, left shift, but x-ray has not shown any evidence of an actual pneumonia process or consolidations. 2. Exacerbation secondary to #1 requiring continued 02 and ongoing steroids, showing slow clinical improvement. 3. Atrial fibrillation with rapid ventricular response most likely exacerbated by #1 and multiple breathing treatments. She has an extensive history of atrial fibrillation presently on Cardizem and Xarelto. She continues to have slightly elevated heart rate. Her Cardizem has been increased to 360 every 24 hours and she is on Metoprolol 50 mg b.i.d. 4. Mildly elevated BNP to 221 on admission with no history of congestive heart failure with no overt signs or exacerbation but showing some peripheral edema, possibly some contributing factor to her continued shortness of breath. 5. Hypertension, stable. 6. Gastroesophageal reflux disease. PLAN: Will continue with antibiotic coverage given that she has had some increase in bands today, but she remains afebrile. I again discussed with her at length that she is close to her baseline levels and should her labs look okay tomorrow clinically if she is at her baseline which is basically going from a bed to a chair to a toilet and minimal physical activity as an outpatient, she could be discharged. The plan would be to discharge her to hopefully [facility] so that she could go to a pulmonary rehab program and increase her endurance, and hopefully have better control of her heart rate. Once her condition is improved I think her heart rate will stay stable as well as will see some improvement in her breathing. We again think she is close to her baseline levels. Until we can transition to outpatient management or discharge to [facility] for rehab, will continue to monitor and treat as needed. #[id number] [facility]
[2018-05-31] MEDS ORDERED: SODIUM CHL 0.9% 50ML MIN-BAG+ 50 ML IVPB ONE (20:24)
[2018-05-31] MEDS ORDERED: SODIUM CHLORIDE 0.9% 250ML 250 ML ONE (20:24)
[2018-05-31] MEDS ORDERED: cefTRIAXone SODIUM 1 GM VIAL ONE (20:25)
[2018-05-31] MEDS ORDERED: AZITHROMYCIN IV 500 MG VIAL IVPB ONE (20:26)
[2018-05-31] MEDS: cefTRIAXone SODIUM 1 GM in SODIUM CHL 0.9% 50ML MIN-BAG+ 50 ML IVPB SCH (21:08)
[2018-05-31] MEDS: MONTELUKAST 10 MG TAB PO SCH (21:10)
[2018-05-31] MEDS: traZODone HCL 100 MG TAB PO SCH (21:11)
[2018-05-31] MEDS: TEMAZEPAM 15 MG CAP PO PRN (21:48)
[2018-05-31] MEDS: AZITHROMYCIN IV 500 MG in SODIUM CHLORIDE 0.9% 250ML 250 ML IVPB SCH (21:48)
[2018-06-01] MEDS: PANTOPRAZOLE SODIUM TAB 40 MG PO SCH (06:11)
--- NOTE | 2018-06-01 07:59 | RAD ---
EXAM DESCRIPTION: Chest,2 Views CLINICAL HISTORY: copd excerbation COMPARISON: May 31, 2018. FINDINGS: Hyperexpanded lungs with finding hemidiaphragms and prominent retrosternal space indicating emphysema. Chronic scar and/or atelectasis superior lingular segment left upper lobe. No acute airspace disease is demonstrated. Heart size is within normal limits. Physiologic anterior wedging of the thoracic vertebral bodies. IMPRESSION: No acute radiographic abnormality. COPD/emphysema. Electronically signed by: Dashawn Crews MD 06/01/2018 7:56 AM CDT
[2018-06-01] MEDS: FUROSEMIDE 40 MG TAB PO SCH (08:08)
[2018-06-01] MEDS: POTASSIUM CHLORIDE 10 MEQ TAB PO SCH (08:08)
[2018-06-01] MEDS: diltiaZEM HCL CD 180 MG CAP PO SCH (08:08)
[2018-06-01] MEDS: METOPROLOL TARTRATE 50 MG TAB PO SCH ×3 (08:09→17:42)
[2018-06-01] MEDS: guaiFENesin ER TAB 600 MG TAB PO SCH ×2 (08:09→20:42)
[2018-06-01] MEDS: LISINOPRIL 10 MG TAB PO SCH (08:09)
[2018-06-01] MEDS: predniSONE 20 MG TAB PO SCH (08:10)
[2018-06-01] MEDS: BUDESONIDE NEBS 0.5 MG/2 ML VIAL NEB SCH ×2 (08:30→19:43)
[2018-06-01] MEDS: LEVALBUTEROL NEBS 1.25 MG/3 ML VIAL NEB SCH ×4 (08:30→19:43)
[2018-06-01] MEDS: SODIUM CHLORIDE 0.9% (FLUSH) 10 ML SYG IV SCH ×2 (08:45→20:42)
[2018-06-01] MEDS: NYSTATIN SUSPENSION 5 ML UD MT SCH ×4 (09:12→20:42)
[2018-06-01] MEDS: FUROSEMIDE INJ 20 MG/2 ML VIAL IV SCH ×2 (09:17→17:43)
[2018-06-01] MEDS: levoFLOXacin 750MG IV 750 MG in PREMIX BAG 1 BAG IVPB SCH (09:28)
[2018-06-01] MEDS: RIVAROXABAN 10 MG TAB PO SCH (11:38)
[2018-06-01] MEDS: IV SET AND CAP CHANGE INJ INJ SCH (17:41)
[2018-06-01] MEDS: MONTELUKAST 10 MG TAB PO SCH (20:42)
[2018-06-01] MEDS: traZODone HCL 100 MG TAB PO SCH (20:42)
--- NOTE | 2018-06-01 21:57 | PN ---
DATE: 06/01/18 SUPERVISING PHYSICIAN: Herb Estes M.D. SUBJECTIVE: The patient complains of some thrush in her mouth. She also complains of lower extremity swelling. She states her shortness of breath is doing fair at this time. OBJECTIVE: Blood pressure 127/95, heart rate 94, respiratory rate 20, temperature 97.6, oxygen saturation 94%. GENERAL: Ms. Smith is a 72 year-old female in no active distress currently. NEUROLOGIC: The patient is alert and oriented. LUNGS: With bilateral expiratory wheezing and some mild rales. CARDIOVASCULAR: Irregular rate and rhythm. Normal S1 and S2. ABDOMEN: Obese, soft, positive bowel sounds. EXTREMITIES: Lower extremities with 3+ pitting edema. Pulses are 2+. Capillary refill less than 2 seconds. LABORATORY: White count 20,000 which is increased from yesterday. Hemoglobin 15.2, hematocrit 46.4, platelet count 250. Chemistry only being done today was a BNP and that was 365 which is increased from the day of admission 5 days ago and that was 221 at that time. ASSESSMENT: 1. Sepsis secondary to acute on chronic bronchitis with concerns for developing pneumonia which is not showing up on chest x-ray. 2. Leukocytosis which is a little bit worse today, but possibly secondary to the steroid that she is on. 3. Atrial fibrillation with suboptimal rate at this time on Cardizem and Metoprolol. 4. Elevated BNP suggestive of heart failure along with peripheral edema. 5. Hypertension which is stable. 6. Gastroesophageal reflux disease. PLAN: At this time she does have an elevated white cell count. I am going to change her antibiotics to Levaquin at this time. Also going to get PT to evaluate her and ambulate her in the hallway. I am going to give her the Nystatin swish and swallow for the thrush in her mouth. I am increasing Metoprolol to 100 mg b.i.d. due to her still suboptimally controlled rate. I am also placing her on IV Lasix. Will reevaluate her labs tomorrow to ensure that we are making some improvement. [facility] has evaluated her for placement post hospitalization as well. #[id number] MTDD
[2018-06-02] MEDS: PANTOPRAZOLE SODIUM TAB 40 MG PO SCH (06:13)
[2018-06-02] MEDS: NYSTATIN POWDER 15GM BTTL TOP SCH ×5 (06:17→20:33)
[2018-06-02] MEDS: POTASSIUM CHLORIDE 10 MEQ TAB PO SCH (07:27)
[2018-06-02] MEDS: METOPROLOL TARTRATE 50 MG TAB PO SCH ×2 (07:29→17:16)
[2018-06-02] MEDS: BUDESONIDE NEBS 0.5 MG/2 ML VIAL NEB SCH ×2 (07:42→20:08)
[2018-06-02] MEDS: LEVALBUTEROL NEBS 1.25 MG/3 ML VIAL NEB SCH ×4 (07:43→20:08)
[2018-06-02] MEDS: FUROSEMIDE INJ 20 MG/2 ML VIAL IV SCH ×2 (09:03→17:16)
[2018-06-02] MEDS: diltiaZEM HCL CD 180 MG CAP PO SCH (09:03)
[2018-06-02] MEDS: predniSONE 20 MG TAB PO SCH (09:03)
[2018-06-02] MEDS: guaiFENesin ER TAB 600 MG TAB PO SCH ×2 (09:03→20:32)
[2018-06-02] MEDS: NYSTATIN SUSPENSION 5 ML UD MT SCH ×4 (09:03→20:32)
[2018-06-02] MEDS: LISINOPRIL 10 MG TAB PO SCH (09:03)
[2018-06-02] MEDS: SODIUM CHLORIDE 0.9% (FLUSH) 10 ML SYG IV SCH ×2 (09:04→20:32)
[2018-06-02] MEDS: levoFLOXacin 750MG IV 750 MG in PREMIX BAG 1 BAG IVPB SCH (09:37)
[2018-06-02] MEDS: RIVAROXABAN 10 MG TAB PO SCH (12:15)
--- NOTE | 2018-06-02 18:37 | PN ---
DATE: 06/02/18 SUPERVISING PHYSICIAN: Herb Estes M.D. SUBJECTIVE: The patient states she feels a little bit better today. She has been able to walk in the halls and doing well with that. The plan is for her to go to [facility]. OBJECTIVE: Blood pressure 144/76, heart rate 90, respiratory rate 16, temperature 98.3, oxygen saturation 93%. GENERAL: Ms. Smith is a 72 year-old female in no active distress currently. NEUROLOGIC: The patient is alert and oriented. LUNGS: With expiratory wheezing in the left lower base, otherwise clear. There are no rales. CARDIOVASCULAR: Irregular rate and rhythm. Normal S1 and S2. ABDOMEN: Soft, positive bowel sounds. EXTREMITIES: Lower extremities with 3+ pitting edema. Pulses 2+. Capillary refill less than 2 seconds. LABORATORY: White count 17.8 which is an improvement from yesterday. Hemoglobin 15, hematocrit 45.9, platelet count 220. Chemistry shows sodium 139, potassium 3.9, chloride 95, CO2 is 34, BUN 32, creatinine 0.96, glucose 81, calcium 8.1. ASSESSMENT: 1. Sepsis secondary to acute on chronic bronchitis with concerns for pneumonic process. 2. Leukocytosis which is improved from yesterday. 3. Atrial fibrillation with had a suboptimally controlled rate is improved today after the increase in Metoprolol. 4. Elevated BNP suggestive of heart failure along with peripheral edema in which she is in a negative fluid balance but still with significant peripheral edema. 5. Hypertension which is stable. 6. Gastroesophageal reflux disease. PLAN: She has elevated white cell count which is improved. Heart rate has improved as well. She is going to go to [facility] tomorrow. I want to recheck her labs one more time in the morning to ensure that we are still in a downward trend. Then she can go over to p.o. medications. Given her edema, I suggest she get some compression stockings. They do not have those in stock at the hospital. Hopefully she can get some at [facility]. #[id number] MTDD
[2018-06-02] MEDS: traZODone HCL 100 MG TAB PO SCH (20:32)
[2018-06-02] MEDS: MONTELUKAST 10 MG TAB PO SCH (20:32)
[2018-06-03] MEDS: PANTOPRAZOLE SODIUM TAB 40 MG PO SCH (06:05)
[2018-06-03] MEDS: LEVALBUTEROL NEBS 1.25 MG/3 ML VIAL NEB SCH (07:42)
[2018-06-03] MEDS: BUDESONIDE NEBS 0.5 MG/2 ML VIAL NEB SCH (07:42)
[2018-06-03] MEDS: METOPROLOL TARTRATE 50 MG TAB PO SCH (08:02)
[2018-06-03] MEDS: POTASSIUM CHLORIDE 10 MEQ TAB PO SCH (08:03)
[2018-06-03] MEDS: NYSTATIN SUSPENSION 5 ML UD MT SCH (10:01)
[2018-06-03] MEDS: predniSONE 20 MG TAB PO SCH (10:02)
[2018-06-03] MEDS: guaiFENesin ER TAB 600 MG TAB PO SCH (10:02)
[2018-06-03] MEDS: diltiaZEM HCL CD 180 MG CAP PO SCH (10:02)
[2018-06-03] MEDS: LISINOPRIL 10 MG TAB PO SCH (10:02)
[2018-06-03] MEDS: SODIUM CHLORIDE 0.9% (FLUSH) 10 ML SYG IV PRN (10:03)
[2018-06-03] MEDS: FUROSEMIDE INJ 20 MG/2 ML VIAL IV SCH (10:05)
[2018-06-03] MEDS: NYSTATIN POWDER 15GM BTTL TOP SCH (10:05)
[2018-06-03] MEDS: SODIUM CHLORIDE 0.9% (FLUSH) 10 ML SYG IV SCH (10:06)
[2018-06-03] MEDS: levoFLOXacin 750MG IV 750 MG in PREMIX BAG 1 BAG IVPB SCH (10:11)
[2018-06-03 10:58] VITALS: BP 141/94; TEMP 98.7; O2SAT 94
--- NOTE | 2018-06-15 10:20 | DS ---
SUPERVISING PHYSICIAN: Herb Estes MD ADMISSION DIAGNOSIS: 1. Sepsis secondary to acute on chronic bronchitis with concerns for developing community acquired pneumonia with temperature of 100.6, heart rate 123, respiratory rate 32 and O2 sat 85% on admission. 2. Atrial fibrillation with rapid ventricular response that may have been exacerbated by #1 as well as multiple breathing treatments. She does have a history of atrial fibrillation and she is presently on Cardizem and Xarelto. 3. Mildly elevated BNP of 221 without a history of congestive heart failure and no signs or symptoms of an acute exacerbation. She may benefit from a cardiac workup after discharge. 4. Hypertension. 5. Gastroesophageal reflux disease. DISCHARGE DIAGNOSIS: 1. Sepsis secondary to acute on chronic bronchitis with concerns for continued pneumonic process, but showing good clinical improvement. 2. Leukocytosis, resolving after initiation of treatment. 3. Atrial fibrillation with had a suboptimally controlled rate, showing improvement after increasing metoprolol. 4. Elevated BNP suggestive of heart failure along with peripheral edema with the patient having no echocardiogram for review on admission, stable. 5. Hypertension, stable. 6. Gastroesophageal reflux disease. REASON FOR ADMISSION: This is a 72 year-old female patient who has had shortness of breath and coughing for 2 days. It worsened to the point last night that she felt she should come into the hospital so she came in early this morning. On arrival to the Emergency Room, she was tachycardic and vomiting. Her EKG showed atrial fibrillation with rapid ventricular response in the 120s. She is on Cardizem at home. She was given some IV Cardizem in the Emergency Room and that brought her heart rate down to about 100. Her O2 sats were in the mid 80s with a respiratory rate of 32. She said she had been febrile at home but was unsure about the temperature. In the E. R., her temperature was 100.6. She was given a breathing treatment as well as some Solu-Medrol. Her initial labs showed electrolytes that were within normal limits, but a slightly elevated glucose at 119. She did have an elevated BNP of 221 but she has no history of congestive heart failure. She does have a history of atrial fibrillation RVR and is presently on Cardizem as well as Xarelto. Her white count was elevated at 11.2 with a left shift on her differential. Hemoglobin was 15.9, hematocrit 48.1. She has a significant history of chronic obstructive pulmonary disease. She quit smoking approximately 3 years ago but has a greater than 100 year pack history. Chest x-ray showed large heart without congestive failure. I was called for hospital admission. LABORATORY: Initial white count was 10,300. White count did go as high as 20,300. At discharge, it was down to 19,800. Hemoglobin and hematocrit were stable and at discharge were 14.7 and 44.4, respectively with platelet count 237,000 at discharge. She did have a left shift with some bands up as high as 3%, but improved prior to discharge. Coagulation studies showed PT 12.1, PTT 29.0. Chemistries on admission showed normal electrolytes with BUN 15, creatinine 1.07. BNP was 221. It did go up to 365. Liver functions were all within normal limits at discharge. Potassium 3.3. Otherwise, electrolytes within normal limits. BUN 31, creatinine 0.9, glucose 79, calcium 7.9. MICROBIOLOGY: Final sputum culture showed mixed respiratory morales. RADIOLOGY: Initially chest x-ray in the Emergency Department prior to admission per radiologic interpretation showed large heart without congestion failure. Multiple chest x-rays were done while in the hospital with the last one being on 06/01/18 and per radiologic interpretation showed no acute radiographic abnormalities, COPD with emphysema. EKG was without any ST elevation and T-wave inversion indicating acute injury pattern. HOSPITAL COURSE: Ms. Smith was admitted as noted above. She was started on DuoNeb treatments. She was given Solu-Medrol, Rocephin and azithromycin. She required some modification of Cardizem to get better control of her ventricular rate which was successful prior to discharge. She was tapered down off Solu- Medrol IV to p.o. prednisone. She was showing good response to treatment and was felt clinically stable enough at discharge to continue with outpatient management. PLAN: Ms. Smith was discharged on 06/03/18 with instructions to followup with Dr. St and Dr. Mcmanus. Dr. Mcmanus is on 06/09/18 at 11:40 AM. She was to followup with Maciel or Gabrielle Mohan in 7 days. She is to resume her home medications as instructed and return to the hospital for any concerning symptoms. Diet at discharge is usual diet. Activity is to increase as tolerated. MEDICATIONS AT DISCHARGE: 1. Xanax 0.5 mg q.6h. as needed, #15, no refills. 2. Cardizem CD 180 mg to take 2 tablets daily, #60, no refills. 3. Metoprolol 50 mg tablets to take 2 tablets b.i.d., #60, no refills. 4. Singulair 10 mg at bedtime, #30, no refills. 5. Nystatin swish and spit, no refills. 6. Prednisone taper 10 mg tablets, 4 tablets x3 days to taper down to 0 tablets as directed, #30 CONDITION AT DISCHARGE: Stable and improving. DISPOSITION: The patient is discharged to the care of family members. #[id number] [facility]
== END 2018-06-03 12:47 | disposition home health service (06) | DRG 871 ==
LOC: ER 08:22 → MS 11:07
PROVIDERS: ADMIT Nurse Practitioner Acute Care; ATTEND Nurse Practitioner Family
DX: A41.9 Sepsis, unspecified organism (principal); J18.9 Pneumonia, unspecified organism; J44.0 Chronic obstructive pulmonary disease with (acute) lower respiratory infection; J20.9 Acute bronchitis, unspecified; R09.02 Hypoxemia; I48.91 Unspecified atrial fibrillation; F41.9 Anxiety disorder, unspecified; I11.0 Hypertensive heart disease with heart failure; I50.9 Heart failure, unspecified; K21.9 Gastro-esophageal reflux disease without esophagitis; H35.30 Unspecified macular degeneration; Z79.01 Long term (current) use of anticoagulants; Z79.899 Other long term (current) drug therapy; Z87.891 Personal history of nicotine dependence; Z96.652 Presence of left artificial knee joint; Z90.49 Acquired absence of other specified parts of digestive tract; Z88.0 Allergy status to penicillin; Z88.6 Allergy status to analgesic agent

== ENCOUNTER → 2018-06-18 | Outpatient (CLI) | payer MEDICARE | LOC: SL 20:21 | PROVIDERS: ATTEND Nurse Practitioner Family | DX: R09.02 Hypoxemia (principal); J44.9 Chronic obstructive pulmonary disease, unspecified; G47.09 Other insomnia ==

== ENCOUNTER → 2018-06-29 | Outpatient (CLI) | payer MEDICARE ==
--- NOTE | 2018-06-29 14:22 | RAD ---
EXAM: Shoulder,Right 2 or More Views CLINICAL HISTORY: M25.511 COMPARISON STUDY: The visible shoulder on prior chest x-rays TECHNICAL: Internal and external rotation images. FINDINGS: There is no fracture and no dislocation. There is no acute osseous abnormality. There are mild degenerative of the right glenohumeral joint and acromioclavicular joint. The visible chest is negative. IMPRESSION: Mild osteoarthritic changes of the right glenohumeral joint and acromioclavicular joint. Electronically signed by: Neil Ying MD 06/29/2018 2:19 PM CDT
== END ==
LOC: RAD 08:47
PROVIDERS: ATTEND Orthopaedic Surgery
DX: M19.011 Primary osteoarthritis, right shoulder (principal)

== ENCOUNTER → 2018-07-01 | Outpatient (CLI) | payer MEDICARE ==
--- NOTE | 2018-07-01 14:28 | MRI ---
Study: MRI of the Right Shoulder. Indication: ROTATOR CUFF TEAR Technique: Multiplanar, multi sequence MRI of the right shoulder was obtained without intravenous contrast. Comparison: None. Findings: Moderate hypertrophic AC joint osteoarthritis with a moderate size joint effusion. Type II acromion with moderate lateral downsloping. Small to moderate volume subacromial/subdeltoid bursal fluid. High-grade supraspinatus and infraspinatus tendinosis with high-grade articular, effectively full-thickness tearing throughout the supraspinatus tendon insertion and measuring approximately 20 mm AP by 11 mm transverse. Subscapularis tendinosis with high-grade articular tearing superior leading edge. Teres minor tendon intact. Mild atrophy and grade 1-2 fatty infiltration rotator cuff musculature. Long head biceps tendinosis and longitudinal fissuring with partial medial subluxation onto the lesser tuberosity. Circumferential labral tearing truncation. Mild glenohumeral joint osteoarthritis with small joint effusion. No acute fracture. 6 mm loose body the axillary pouch. Fluid distention long head biceps tendon sheath with mild complex ganglion formation along its anterior superior margin abutting the undersurface of the anterior deltoid muscle and measuring approximately 15 mm. Impression: High-grade supraspinatus and infraspinatus tendinosis with high-grade articular, effectively full-thickness tearing of the fullwidth supraspinatus tendon. Subscapularis tendinosis with high-grade articular tearing superior leading edge. Mild atrophy and grade 1/2 fatty infiltration rotator cuff musculature. Long head biceps tendinosis and longitudinal fissuring with partial medial subluxation. Circumferential labral tearing and truncation. Mild glenohumeral joint osteoarthritis with small joint effusion and a 6 mm loose body in the axillary recess. Moderate hypertrophic AC joint osteoarthritis. Electronically signed by: Quentin Anderson MD 07/01/2018 2:26 PM CDT
== END ==
LOC: MRI 10:00
PROVIDERS: ATTEND Orthopaedic Surgery
DX: M75.101 Unspecified rotator cuff tear or rupture of right shoulder, not specified as traumatic (principal); S43.431A Superior glenoid labrum lesion of right shoulder, initial encounter; M19.011 Primary osteoarthritis, right shoulder; M75.21 Bicipital tendinitis, right shoulder; M62.511 Muscle wasting and atrophy, not elsewhere classified, right shoulder

== ENCOUNTER → 2018-07-06 | Outpatient (CLI) | payer MEDICARE ==
--- NOTE | 2018-07-06 17:21 | US ---
EXAM DESCRIPTION: Venous,Upper Extremity RT: ULTRASOUND. CLINICAL HISTORY: PAIN IN RIGHT ARM. Trauma to upper arm 2 weeks ago. Palpable mass and bruising medial right arm. COMPARISON: None Available. TECHNIQUE: Two -dimensional and doppler sonographic evaluation of the deep venous system of the right upper extremity. FINDINGS: Doppler evaluation shows normal color flow and normal phasicity and augmentation of the right subclavian, internal jugular, axillary, basilic, brachial, radial vein and ulnar vein. The right upper extremity deep veins showed normal occlusion with transducer pressure. Two-dimensional survey showed no echogenic thrombus within these veins. Echogenic tissue in the region of interest is most likely related to skin ecchymosis. IMPRESSION: Duplex ultrasound evaluation of the right upper extremity deep venous system showing no thrombosis. . Electronically signed by: Dayton Mills MD 07/06/2018 5:19 PM CDT
== END ==
LOC: RAD 13:31
PROVIDERS: ATTEND Orthopaedic Surgery
DX: M79.601 Pain in right arm (principal)

== ENCOUNTER → 2018-08-17 | Outpatient (CLI) | payer MEDICARE ==
--- NOTE | 2018-08-17 13:06 | RAD ---
Study: Frontal and Lateral Radiographs of the Chest. Indication: SHORTNESS OF BREATH Comparison: August 10, 2018 Impression: Cardiomegaly. Mild central pulmonary vascular congestion. Mild patchy bibasilar atelectasis versus pneumonia redemonstrated. Continued follow-up recommended. No pleural effusion or pneumothorax. Electronically signed by: Quentin Anderson MD 08/17/2018 1:03 PM CDT
== END ==
LOC: LAB.O 12:21
PROVIDERS: ATTEND Nurse Practitioner Family
DX: I51.7 Cardiomegaly (principal); R91.8 Other nonspecific abnormal finding of lung field; R60.0 Localized edema

== ENCOUNTER → 2018-08-19 | Day surgery (SDC) | payer MEDICARE ==
--- NOTE | 2018-08-10 14:11 | RAD ---
EXAM DESCRIPTION: Chest,2 Views CLINICAL HISTORY: preop right shoulder rotator cuff repair COMPARISON: Previous study June 01, 2018 TECHNIQUE: PA/lateral FINDINGS: Heart is prominent with prominent central pulmonary vascularity. Discoid atelectasis in the left lung base appears similar to previous study. Bones appear osteopenic. Mild spurring in the T-spine. IMPRESSION: Large heart with prominent pulmonary vascularity. Discoid atelectasis in the lingula and left lung base similar to previous study. Electronically signed by: Tone Boggs MD 08/10/2018 2:09 PM CDT
--- NOTE | 2018-08-11 08:38 | HP ---
CHIEF COMPLAINT: Right shoulder pain. HISTORY OF PRESENT ILLNESS: Phyllis is a 73-year-old female with a history of pain in the right shoulder that has been getting progressively worse. Unfortunately, she has failed to gain relief with conservative measures. MRI shows the presence of a rotator cuff tear. Because of that, she has requested operative intervention. After discussing the risks, benefits and alternatives to that, she has given informed consent. PAST SURGICAL HISTORY: 1. Total knee arthroplasty. 2. Cholecystectomy. MEDICATIONS: 1. Furosemide. 2. Potassium. 3. Cartia. 4. Pantoprazole. 5. Bystolic. 6. Xarelto. 7. Trazodone. 8. Dulera. 9. PreserVision. 10. Lisinopril. ALLERGIES: NO KNOWN DRUG ALLERGIES. CODE STATUS: Full code. IMMUNIZATIONS: Up to date. FAMILY HISTORY: None pertinent to today's complaint. SOCIAL HISTORY: The patient does not smoke or use any illicit drugs. She does drink on occasion. REVIEW OF SYSTEMS: Negative except as indicated in the History of Present Illness. PHYSICAL EXAMINATION: VITAL SIGNS: Blood pressure 143/80. Pulse 114. Height 5'4". Weight 235 pounds. MENTAL STATUS: The patient is awake, alert, and is able to give a good history and participate in the physical. The patient is oriented to person, place and time. SKIN: Normal tone and turgor. HEENT: Normocephalic, atraumatic. Pupils equal, round and reactive. Mucosal membranes are moist. NECK: Normal range of motion. No thyromegaly, no lymphadenopathy. CHEST: Normal respiratory excursion. CARDIAC: Regular rate and rhythm. No murmurs, rubs or gallops. MUSCULOSKELETAL: Bilateral lower extremities show full active painless range of motion. She has no deformities. Sensation is intact. Strength is 5/5. Both extremities are warm and well perfused. She has normal gait. Left upper extremity shows normal range of motion without significant tenderness. She has intact sensation. Strength is 5/5. The extremity is warm and well perfused. There is no crepitus with range of motion in the shoulder, elbow, wrist and digits. The right upper extremity shows difficulty with range of motion beyond about 75 degrees of abduction and 75 degrees of forward flexion. She has intact sensation. Strength is 5/5. The extremity has no deformities. She has negative belly press maneuver. [employer] strength although 5/5, she has difficulty with abduction and forward flexion. She has pain during internal and external rotation during abduction and forward flexion. She has internal rotation today that is about to L2. IMAGING: MRI shows evidence of rotator cuff tear. ASSESSMENT: 1. Rotator cuff tear. PLAN: The plan at this point is rotator cuff repair. We have discussed the risks, benefits, and alternatives to that and the patient has given informed consent. [facility][id number] [facility]
== END ==
LOC: AMB 10:30
PROVIDERS: ATTEND Orthopaedic Surgery
DX: Z01.810 Encounter for preprocedural cardiovascular examination (principal); Z01.812 Encounter for preprocedural laboratory examination; M75.101 Unspecified rotator cuff tear or rupture of right shoulder, not specified as traumatic; Z53.9 Procedure and treatment not carried out, unspecified reason

== ENCOUNTER → 2018-08-24 | Outpatient (CLI) | payer MEDICARE | LOC: LAB.O 07:23 | PROVIDERS: ATTEND Internal Medicine Cardiovascular Disease | DX: I50.32 Chronic diastolic (congestive) heart failure (principal) ==

== ENCOUNTER → 2018-09-14 | Outpatient (CLI) | payer MEDICARE | LOC: YCFC.O 10:09 | PROVIDERS: ATTEND Nurse Practitioner Family | DX: I48.91 Unspecified atrial fibrillation (principal) ==

== ENCOUNTER → 2018-09-15 | Outpatient (CLI) | payer MEDICARE | LOC: ECHO 09:48 | PROVIDERS: ATTEND Nurse Practitioner Family | DX: I48.91 Unspecified atrial fibrillation (principal); I31.3 Pericardial effusion (noninflammatory); I51.9 Heart disease, unspecified ==

== ENCOUNTER → 2018-09-21 | Outpatient (CLI) | payer MEDICARE | LOC: RESP 16:43 | PROVIDERS: ATTEND Nurse Practitioner Family | DX: I48.91 Unspecified atrial fibrillation (principal) ==

== ENCOUNTER → 2019-03-04 | Outpatient (CLI) | payer MEDICARE | LOC: YCHH 08:47 | PROVIDERS: ATTEND Family Medicine | DX: R79.89 Other specified abnormal findings of blood chemistry (principal); E78.5 Hyperlipidemia, unspecified; R68.89 Other general symptoms and signs; R80.9 Proteinuria, unspecified; R77.0 Abnormality of albumin ==

== ENCOUNTER → 2020-02-10 | Outpatient (CLI) | payer MEDICARE | LOC: YCFC.O 08:17 | PROVIDERS: ATTEND Family Medicine | DX: I10 Essential (primary) hypertension (principal); E78.00 Pure hypercholesterolemia, unspecified ==